=== PATIENT | female | born 1965 | race Caucasian/White ===

== ENCOUNTER 2018-01-09 11:46 | Inpatient (IN) | payer OTHER ==
[2018-01-09 13:33] VITALS: BMI 25.8
--- NOTE | 2018-01-09 14:48 | HP ---
CIWA Score - CIWA Score Nausea/Vomitin-Mild Nausea/No Vomiting Muscle Tremors: 4-Moderate,w/Arms Extend Anxiety: 3 Agitation: 3 Paroxysmal Sweats: 3 Orientation: 0-Oriented Tacttile Disturbances: 0-None Auditory Disturbances: 0-None Visual Disturbances: 0-None Headache: 0-None Present CIWA-Ar Total Score: 14 Admission ROS BHS - HPI Chief Complaint: I need to get help. Allergies/Adverse Reactions: Allergies Allergy/AdvReac Type Severity Reaction Status Date / Time Fish Containing Products Allergy Hives Verified 01/09/18 14:29 Penicillins Allergy Hives Verified 01/09/18 14:29 History of Present Illness: Pt is a 52yr old female clean and sober for a year and recently relapsed. Pt is seeking detox for treatment. Pt is also on a mmtp program last medicated today; pending verification. pt states her dependence to xanax is more addictive than the alcohol. Pt prefer valium detox. Exam Limitations: No Limitations - Ebola screening Have you traveled outside of the country in the last 21 days: No Have you had contact with anyone from an Ebola affected area: No Have you been sick,other than usual withdrawal symptoms: No Do you have a fever: No - Review of Systems Constitutional: Chills, Diaphoresis, Loss of Appetite, Night Sweats EENT: reports: Nose Congestion Respiratory: reports: No Symptoms reported Cardiac: reports: No Symptoms Reported, Syncope (3weeks ago d/t substance dependence) GI: reports: Poor Appetite, Poor Fluid Intake : reports: No Symptoms Reported Musculoskeletal: reports: Back Pain, Other (scoliosis and siactica) Integumentary: reports: Flushing, Sweating Neuro: reports: Tingling, Tremors Endocrine: reports: Excessive Sweating, Flushing, Intolerance to Cold, Intolerance to Heat Hematology: reports: No Symptoms Reported Psychiatric: reports: Judgement Intact, Mood/Affect Appropiate, Orientated x3, Agitated, Anxious Other Systems: Reviewed and Negative Patient History - Patient Medical History Hx Anemia: No Hx Asthma: No Hx Chronic Obstructive Pulmonary Disease (COPD): No Hx Cancer: No Hx Cardiac Disorders: No Hx Congestive Heart Failure: No Hx Hypertension: No Hx Hypercholesterolemia: No Hx Pacemaker: No HX Cerebrovascular Accident: No Hx Seizures: No Hx Dementia: No Hx Diabetes: No Hx Gastrointestinal Disorders: No Hx Liver Disease: No Hx Genitourinary Disorders: No Hx Sexually Transmitted Disorders: No Hx Renal Disease (ESRD): No Hx Thyroid Disease: No Hx Human Immunodeficiency Virus (HIV): No (negative) Hx Hepatitis C: No (negative) Hx Depression: Yes Hx Suicide Attempt: Yes Hx Bipolar Disorder: No Hx Schizophrenia: No - Patient Surgical History Past Surgical History: No Hx Neurologic Surgery: No Hx Cataract Extraction: No Hx Cardiac Surgery: No Hx Lung Surgery: No Hx Breast Surgery: No Hx Breast Biopsy: No Hx Abdominal Surgery: No Hx Appendectomy: No Hx Cholecystectomy: No Hx Genitourinary Surgery: No Hx Section: No Hx Orthopedic Surgery: No Anesthesia Reaction: No - PPD History Previous Implant?: Yes Documented Results: Negative w/o proof Implanted On Prior R Admission?: Yes PPD to be Administered?: Yes - Reproductive History Patient is a Female of Child Bearing Age (11 -55 yrs old): Yes Patient : No - Smoking Cessation Smoking history: Current every day smoker Have you smoked in the past 12 months: Yes Aproximately how many cigarettes per day: 10 Hx Chewing Tobacco Use: No Initiated information on smoking cessation: No 'Breaking Loose' booklet given: 01/09/18 - Substance & Tx. History Hx Alcohol Use: Yes Hx Substance Use: Yes Substance Use Type: Alcohol, Tranquilizers Hx Substance Use Treatment: Yes (last detox [facility] 2 months ago) - Substances Abused Alcohol Route: Oral Frequency: Daily Amount used: BEERS- 10CANS Age of first use: 16 Date of Last Use: 01/07/18 Alprazolam (Xanax) Route: Oral Frequency: Daily Amount used: 4MG Age of first use: 45 Date of Last Use: 01/09/18 ALBERT Route: Smoking Frequency: Daily Amount used: 3BAGS Age of first use: 13 Date of Last Use: 01/08/18 Family Disease History - Family Disease History Family History: Denies Admission Physical Exam BHS - Vital Signs Vital Signs: Vital Signs - 24 hr 01/09/18 13:31 Temperature 96.4 F L Pulse Rate 60 Respiratory 18 Rate Blood Pressure 132/75 - Physical General Appearance: Yes: Appropriately Dressed, Tremorous, Irritable, Sweating, Anxious HEENTM: Yes: Normal Voice, Nasal Congestion, Rhinorrhea Respiratory: Yes: Lungs Clear, Normal Breath Sounds, No Respiratory Distress Neck: Yes: No masses,lesions,Nodules Breast: Yes: Within Normal Limits Cardiology: Yes: Regular Rhythm, Regular Rate, S1, S2 Abdominal: Yes: Normal Bowel Sounds, Non Tender Genitourinary: Yes: Within Normal Limits Back: Yes: Normal Inspection Musculoskeletal: Yes: Back pain, Muscle Pain Extremities: Yes: Non-Tender, Tremors Neurological: Yes: Fully Oriented, Alert, Normal Response Integumentary: Yes: Normal Color Lymphatic: Yes: Within Normal Limits - Diagnostic (1) Cocaine dependence Current Visit: Yes Status: Chronic Qualifiers: Substance use status: uncomplicated Qualified Code(s): F14.20 - Cocaine dependence, uncomplicated (2) Methadone maintenance therapy patient Current Visit: Yes Status: Chronic Comment: last medicated today; pending verification (3) Alcohol dependence with uncomplicated withdrawal Current Visit: Yes Status: Chronic (4) Xanax use disorder, severe, dependence Current Visit: Yes Status: Chronic Cleared for Admission [facility] - Detox or Rehab [facility] Level of Care: Medically Managed Detox Regimen/Protocol: Valium [facility] Breath Alcohol Content Breath Alcohol Content: 0 Urine Pregancy Test - Result Urine Test Results: Negative- NO Line Present Urine Drug Screen - Results Drug Screen Negative: No Urine Drug Screen Results: ALBERT-Cocaine, BZO-Benzodiazepines, MTD-Methadone
[2018-01-09] MEDS ORDERED: NICOTINE POLACRILEX 4 MG GUM BC PRN (14:54)
[2018-01-09] MEDS ORDERED: MENTHOL/PHENOL 1 EACH UD MM PRN (14:54)
[2018-01-09] MEDS ORDERED: MAGNESIUM CITRATE 300 ML BOTTLE PO PRN (14:54)
[2018-01-09] MEDS ORDERED: MAG HYDROX/AL HYDROX/SIMETH 30 ML UNIT-DOSE CUP PO PRN (14:54)
[2018-01-09] MEDS ORDERED: guaiFENesin/D-METHORPHAN HB 10 ML UNIT-DOSE CUPS PO PRN (14:54)
[2018-01-09] MEDS ORDERED: LOPERAMIDE HCL 2 MG CAPSULE PO PRN (14:54)
[2018-01-09] MEDS ORDERED: P-EPHED 60MG/TRIPROLIDI 2.5MG TABLET PO PRN (14:54)
[2018-01-09] MEDS ORDERED: MAGNESIUM HYDROX 2400MG/30ML ORAL SUSPENSION 30 ML CUP PO PRN (14:54)
[2018-01-09] MEDS ORDERED: IBUPROFEN 400 MG TABLET (FP) PO PRN (14:54)
[2018-01-09] MEDS ORDERED: diazePAM 5 MG TABLET PO ONE (16:45)
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
[2018-01-09] MEDS ORDERED: MELATONIN 5 MG TABLETS PO PRN (22:00)
[2018-01-09] MEDS ORDERED: ZOLPIDEM TARTRATE 5 MG TABLET PO PRN (22:00)
[2018-01-09] MEDS: THIAMINE HCL 100 MG TABLET (FP) PO SCH (22:16)
[2018-01-09] MEDS: diazePAM 5 MG TABLET PO SCH (22:16)
[2018-01-09] MEDS: ZOLPIDEM TARTRATE 10 MG TABLET (PARK CARE ONLY) PO PRN (22:17)
[2018-01-10] MEDS: diazePAM 5 MG TABLET PO SCH ×3 (06:15→23:11)
--- NOTE | 2018-01-10 10:09 | PN ---
S CIWA - CIWA Score Nausea/Vomitin-Mild Nausea/No Vomiting Muscle Tremors: 3 Anxiety: 2 Agitation: 2 Paroxysmal Sweats: 1-Minimal Palms Moist Orientation: 1-Uncertain about Date Tacttile Disturbances: 1-Very Mild Itch/Numbness Auditory Disturbances: 0-None Visual Disturbances: 0-None Headache: 1-Very Mild CIWA-Ar Total Score: 12 BHS Progress Note (SOAP) Subjective: gi distress, nausea zofrain 4 mg x 1 bp elevation amlodipne 5 mg Objective: 01/10/18 10:34 Vital Signs Temperature 97.6 F 01/10/18 10:00 Pulse Rate 54 L 01/10/18 10:00 Respiratory Rate 20 01/10/18 10:00 Blood Pressure 169/74 01/10/18 10:00 O2 Sat by Pulse Oximetry (%) Laboratory Last Values WBC 6.1 K/mm3 (4.0-10.0) 01/10/18 06:00 RBC 5.07 M/mm3 (3.60-5.2) 01/10/18 06:00 Hgb 13.3 GM/dL (10.7-15.3) 01/10/18 06:00 Hct 42.1 % (32.4-45.2) 01/10/18 06:00 MCV 83.1 fl (80-96) 01/10/18 06:00 MCH 26.3 pg (25.7-33.7) 01/10/18 06:00 MCHC 31.7 g/dl (32.0-36.0) L 01/10/18 06:00 RDW 15.8 % (11.6-15.6) H 01/10/18 06:00 Plt Count 191 K/MM3 (134-434) 01/10/18 06:00 MPV 10.9 fl (7.5-11.1) 01/10/18 06:00 lab noted Assessment: 01/10/18 10:35 withdrawal sx hypertension nausea 01/10/18 10:35 methadone maintenance 180 mg Plan: continue detox zofrain 4 mg sl amlodopine 5 mg po daily
[2018-01-10] MEDS ORDERED: ONDANSETRON *ODT* 4 MG TABLET SL ONE (10:15)
[2018-01-10 10:29] LABS: HEMATOCRIT 42.1 % (32.4-45.2); HEMOGLOBIN 13.3 GM/dL (10.7-15.3); MCH 26.3 pg (25.7-33.7); MCHC 31.7 g/dl (32.0-36.0); MEAN CELL VOLUME 83.1 fl (80-96); MEAN PLT VOLUME 10.9 fl (7.5-11.1); PLATELET COUNT 191 K/MM3 (134-434); RBC 5.07 M/mm3 (3.60-5.2); RDW 15.8 % (11.6-15.6); WHITE BLOOD COUNT 6.1 K/mm3 (4.0-10.0)
[2018-01-10] MEDS: SERTRALINE HCL 50 MG TABLET (FP) PO SCH (10:41)
[2018-01-10] MEDS: diazePAM 5 MG TABLET PO PRN ×2 (10:41→18:56)
[2018-01-10] MEDS: PRENATAL VITAMINS W/ FOLIC ACID TABLET (FP) PO SCH (10:41)
[2018-01-10] MEDS: amLODIPine BESYLATE 5 MG TABLET (FP) PO SCH (10:42)
[2018-01-10] MEDS: NICOTINE 21 MG/24 HOURS TOPICAL PATCH TD SCH ×2 (10:44→11:41)
--- NOTE | 2018-01-10 10:48 | EKG ---
Test Reason : Blood Pressure : / mmHG Vent. Rate : 060 BPM Atrial Rate : 060 BPM P-R Int : 170 ms QRS Dur : 090 ms QT Int : 474 ms P-R-T Axes : 071 070 058 degrees QTc Int : 474 ms NORMAL SINUS RHYTHM POSSIBLE LEFT ATRIAL ENLARGEMENT BORDERLINE ECG NO PREVIOUS ECGS AVAILABLE Confirmed by CORNELIO CASTILLO, JUAN ([id number]) on 01/10/2018 10:47:43 AM Referred By: Confirmed By:JUAN GRIMES MD
[2018-01-10 11:03] LABS: ALBUMIN 3.5 g/dl (3.4-5.0); ALK PHOS 66 U/L (45-117); ANION GAP 7 MMOL/L (8-16); BILIRUBIN,TOTAL 0.2 mg/dL (0.2-1); BLOOD UREA NITROGEN 15 mg/dL (7-18); CALCIUM 9.1 mg/dL (8.5-10.1); CHLORIDE 108 mmol/L (98-107); CO2 30 mmol/L (21-32); CREATININE 0.7 mg/dL (0.55-1.3); GLUCOSE,RANDOM 78 mg/dL (74-106); POTASSIUM 4.4 mmol/L (3.5-5.1); SGOT/AST 17 U/L (15-37); SGPT/ALT 17 U/L (13-61); SODIUM 145 mmol/L (136-145); TOT PROT 6.6 g/dl (6.4-8.2)
[2018-01-10] MEDS ORDERED: METHADONE HCL 10 MG TABLET PO ONE (11:14)
[2018-01-10] MEDS ORDERED: METHADONE 160 MG, METHADONE 20 MG PO ONE (11:30)
[2018-01-10] MEDS ORDERED: METHADONE HCL 40 MG DISPERSABLE TABLET ONE (11:34)
[2018-01-10] MEDS ORDERED: METHADONE HCL 10 MG TABLET ONE (11:34)
[2018-01-10] MEDS: ACETAMINOPHEN 325 MG TABLET (FP) PO PRN (13:32)
[2018-01-10] MEDS: hydrOXYzine PAMOATE 50 MG CAPSULE (FP) PO PRN (18:56)
[2018-01-10 21:54] LABS: URINE APPEARANCE CLEAR; URINE BILIRUBIN NEGATIVE (<2.0 mg/dL); URINE COLOR STRAW; URINE GLUCOSE (UA) NEGATIVE (NEGATIVE); URINE KETONE NEGATIVE (NEGATIVE); URINE LEUK ESTERASE NEGATIVE (NEGATIVE); URINE NITRITE NEGATIVE (NEGATIVE); URINE PROTEIN NEGATIVE (NEGATIVE); URINE UROBILINOGEN NEGATIVE mg/dL (0.2-1.0)
[2018-01-10] MEDS: THIAMINE HCL 100 MG TABLET (FP) PO SCH (23:11)
[2018-01-10] MEDS: ZOLPIDEM TARTRATE 10 MG TABLET (PARK CARE ONLY) PO PRN (23:11)
[2018-01-11] MEDS: diazePAM 5 MG TABLET PO PRN ×2 (02:30→13:51)
[2018-01-11] MEDS ORDERED: METHADONE HCL 40 MG DISPERSABLE TABLET ONE (05:38)
[2018-01-11] MEDS ORDERED: METHADONE HCL 10 MG TABLET ONE (05:39)
[2018-01-11] MEDS ORDERED: METHADONE HCL 40 MG DISPERSABLE TABLET PO SCH (06:00)
[2018-01-11] MEDS: METHADONE 160 MG, METHADONE 20 MG PO SCH (06:02)
[2018-01-11] MEDS: ACETAMINOPHEN 325 MG TABLET (FP) PO PRN ×2 (06:21→20:35)
[2018-01-11] MEDS: amLODIPine BESYLATE 5 MG TABLET (FP) PO SCH (10:17)
[2018-01-11] MEDS: SERTRALINE HCL 50 MG TABLET (FP) PO SCH (10:17)
[2018-01-11] MEDS: NICOTINE 21 MG/24 HOURS TOPICAL PATCH TD SCH (10:17)
[2018-01-11] MEDS: diazePAM 5 MG TABLET PO SCH ×2 (10:17→22:15)
[2018-01-11] MEDS: PRENATAL VITAMINS W/ FOLIC ACID TABLET (FP) PO SCH (10:17)
--- NOTE | 2018-01-11 11:42 | PN ---
[facility] CIWA - CIWA Score Nausea/Vomitin-No Nausea/No Vomiting Muscle Tremors: 3 Anxiety: 2 Agitation: 2 Paroxysmal Sweats: 1-Minimal Palms Moist Orientation: 0-Oriented Tacttile Disturbances: 1-Very Mild Itch/Numbness Auditory Disturbances: 0-None Visual Disturbances: 0-None Headache: 1-Very Mild CIWA-Ar Total Score: 10 S Progress Note (SOAP) Subjective: tremor sweat restlessness anxiety trouble sleep at night Objective: 01/11/18 11:43 Vital Signs Temperature 97.3 F L 01/11/18 09:12 Pulse Rate 68 01/11/18 09:12 Respiratory Rate 17 01/11/18 09:12 Blood Pressure 113/74 01/11/18 09:12 O2 Sat by Pulse Oximetry (%) Laboratory Last Values WBC 6.1 K/mm3 (4.0-10.0) 01/10/18 06:00 RBC 5.07 M/mm3 (3.60-5.2) 01/10/18 06:00 Hgb 13.3 GM/dL (10.7-15.3) 01/10/18 06:00 Hct 42.1 % (32.4-45.2) 01/10/18 06:00 MCV 83.1 fl (80-96) 01/10/18 06:00 MCH 26.3 pg (25.7-33.7) 01/10/18 06:00 MCHC 31.7 g/dl (32.0-36.0) L 01/10/18 06:00 RDW 15.8 % (11.6-15.6) H 01/10/18 06:00 Plt Count 191 K/MM3 (134-434) 01/10/18 06:00 MPV 10.9 fl (7.5-11.1) 01/10/18 06:00 Sodium 145 mmol/L (136-145) 01/10/18 06:00 Potassium 4.4 mmol/L (3.5-5.1) 01/10/18 06:00 Chloride 108 mmol/L (98-107) H 01/10/18 06:00 Carbon Dioxide 30 mmol/L (21-32) 01/10/18 06:00 Anion Gap 7 MMOL/L (8-16) L 01/10/18 06:00 BUN 15 mg/dL (7-18) 01/10/18 06:00 Creatinine 0.7 mg/dL (0.55-1.3) 01/10/18 06:00 Creat Clearance w eGFR > 60 (>60) 01/10/18 06:00 Random Glucose 78 mg/dL (74-106) 01/10/18 06:00 Calcium 9.1 mg/dL (8.5-10.1) 01/10/18 06:00 Total Bilirubin 0.2 mg/dL (0.2-1) 01/10/18 06:00 AST 17 U/L (15-37) 01/10/18 06:00 ALT 17 U/L (13-61) 01/10/18 06:00 Alkaline Phosphatase 66 U/L (45-117) 01/10/18 06:00 Total Protein 6.6 g/dl (6.4-8.2) 01/10/18 06:00 Albumin 3.5 g/dl (3.4-5.0) 01/10/18 06:00 Urine Color Straw 01/10/18 16:04 Urine Appearance Clear 01/10/18 16:04 Urine pH 7.0 (5.0-8.0) 01/10/18 16:04 Ur Specific [place] 1.004 (1.010-1.035) L 01/10/18 16:04 Urine Protein Negative (NEGATIVE) 01/10/18 16:04 Urine Glucose (UA) Negative (NEGATIVE) 01/10/18 16:04 Urine Ketones Negative (NEGATIVE) 01/10/18 16:04 Urine Blood Negative (NEGATIVE) 01/10/18 16:04 Urine Nitrite Negative (NEGATIVE) 01/10/18 16:04 Urine Bilirubin Negative (<2.0 mg/dL) 01/10/18 16:04 Urine Urobilinogen Negative mg/dL (0.2-1.0) 01/10/18 16:04 Ur Leukocyte Esterase Negative (NEGATIVE) 01/10/18 16:04 RPR Titer Nonreactive (NONREACTIVE) 01/10/18 06:00 HIV 1&2 Antibody Screen Negative 01/10/18 06:00 HIV P24 Antigen Negative 01/10/18 06:00 lab noted Assessment: 01/11/18 11:43 withdrawal sx Plan: continue detox
[2018-01-11] MEDS: hydrOXYzine PAMOATE 50 MG CAPSULE (FP) PO PRN (20:35)
[2018-01-11] MEDS: ZOLPIDEM TARTRATE 10 MG TABLET (PARK CARE ONLY) PO PRN (22:15)
[2018-01-11] MEDS: THIAMINE HCL 100 MG TABLET (FP) PO SCH (22:15)
[2018-01-12] MEDS: ACETAMINOPHEN 325 MG TABLET (FP) PO PRN ×3 (01:55→21:10)
[2018-01-12] MEDS: diazePAM 5 MG TABLET PO PRN (01:55)
[2018-01-12] MEDS: hydrOXYzine PAMOATE 50 MG CAPSULE (FP) PO PRN ×3 (02:36→21:10)
[2018-01-12] MEDS ORDERED: METHADONE HCL 40 MG DISPERSABLE TABLET ONE (06:19)
[2018-01-12] MEDS: METHADONE 160 MG, METHADONE 20 MG PO SCH (06:20)
[2018-01-12] MEDS ORDERED: METHADONE HCL 10 MG TABLET ONE (06:20)
[2018-01-12] MEDS ORDERED: LIDOCAINE 5% TOPICAL PATCH TP SCH (10:30)
[2018-01-12] MEDS: diazePAM 5 MG TABLET PO SCH ×2 (10:31→22:35)
[2018-01-12] MEDS: NICOTINE 21 MG/24 HOURS TOPICAL PATCH TD SCH (10:31)
[2018-01-12] MEDS: PRENATAL VITAMINS W/ FOLIC ACID TABLET (FP) PO SCH (10:31)
[2018-01-12] MEDS: SERTRALINE HCL 50 MG TABLET (FP) PO SCH (10:32)
[2018-01-12] MEDS: amLODIPine BESYLATE 5 MG TABLET (FP) PO SCH (11:01)
--- NOTE | 2018-01-12 12:25 | PN ---
S Progress Note Note: PATIENT CONTINUES WITH DETOX REGIMEN. PATIENT C/O LOW BACK PAIN. Vital Signs Period Temp Pulse Resp BP Sys/Albright Pulse Ox Last 24 Hr 97.3 F-98.4 F 57-68 16-20 96-141/65-74 Laboratory Tests 01/10/18 01/10/18 01/10/18 06:00 06:00 06:00 WBC 6.1 RBC 5.07 Hgb 13.3 Hct 42.1 MCV 83.1 MCH 26.3 MCHC 31.7 L RDW 15.8 H Plt Count 191 MPV 10.9 Sodium 145 Potassium 4.4 Chloride 108 H Carbon Dioxide 30 Anion Gap 7 L BUN 15 Creatinine 0.7 Creat Clearance w eGFR > 60 Random Glucose 78 Calcium 9.1 Total Bilirubin 0.2 AST 17 ALT 17 Alkaline Phosphatase 66 Total Protein 6.6 Albumin 3.5 Urine Color Urine Appearance Urine pH Ur Specific [place] Urine Protein Urine Glucose (UA) Urine Ketones Urine Blood Urine Nitrite Urine Bilirubin Urine Urobilinogen Ur Leukocyte Esterase RPR Titer HIV 1&2 Antibody Screen Negative HIV P24 Antigen Negative 01/10/18 01/10/18 06:00 16:04 WBC RBC Hgb Hct MCV MCH MCHC RDW Plt Count MPV Sodium Potassium Chloride Carbon Dioxide Anion Gap BUN Creatinine Creat Clearance w eGFR Random Glucose Calcium Total Bilirubin AST ALT Alkaline Phosphatase Total Protein Albumin Urine Color Straw Urine Appearance Clear Urine pH 7.0 Ur Specific [place] 1.004 L Urine Protein Negative Urine Glucose (UA) Negative Urine Ketones Negative Urine Blood Negative Urine Nitrite Negative Urine Bilirubin Negative Urine Urobilinogen Negative Ur Leukocyte Esterase Negative RPR Titer Nonreactive HIV 1&2 Antibody Screen HIV P24 Antigen SKIN WARM AND DRY CAR S1S2 RESP CTA BL EXT FULL ROM, NO EDEMA ALERT AND ORIENTED X 3 A/P WITHDRAWAL SYNDROME LBP CONTINUE DETOX ADD LIDOCAINE PATCH TO REGIMEN ENCOURAGE ORAL FLUIDS CONTINUE TO MONITOR CLINICALLY
[2018-01-12] MEDS: ZOLPIDEM TARTRATE 10 MG TABLET (PARK CARE ONLY) PO PRN (21:55)
[2018-01-12] MEDS ORDERED: LIDOCAINE PATCH REMOVAL MC SCH (22:00)
[2018-01-12] MEDS: THIAMINE HCL 100 MG TABLET (FP) PO SCH (22:35)
[2018-01-13] MEDS: ACETAMINOPHEN 325 MG TABLET (FP) PO PRN (02:02)
[2018-01-13] MEDS ORDERED: METHADONE HCL 10 MG TABLET ONE (04:13)
[2018-01-13] MEDS ORDERED: METHADONE HCL 40 MG DISPERSABLE TABLET ONE (04:13)
[2018-01-13] MEDS: METHADONE 160 MG, METHADONE 20 MG PO SCH (05:21)
[2018-01-13 06:19] VITALS: BP 130/77; PULSE 65; TEMP 98.1
[2018-01-13] MEDS ORDERED: diazePAM 5 MG TABLET PO SCH (10:00)
--- NOTE | 2018-01-13 13:15 | DS ---
[facility] Detox Discharge Summary Admission Date: 01/09/18 Discharge Date: 01/13/18 - History Additional Comments: Pt for discharge Pt had left unit prior to this provider's arrival Pertinent Past History: MMTP - Physical Exam Results Vital Signs: Vital Signs Temperature 98.1 F 01/13/18 06:00 Pulse Rate 65 01/13/18 06:00 Respiratory Rate 16 01/13/18 06:00 Blood Pressure 130/77 01/13/18 06:00 O2 Sat by Pulse Oximetry (%) Pertinent Admission Physical Exam Findings: withdrawal sx - Treatment Hospital Course: Detox Protocol Followed, Detoxed Safely, Responded well, Discharged Condition Good - Medication Discharge Medications: Ambulatory Orders Sertraline HCl [Zoloft] 50 mg PO DAILY 01/09/18 Zolpidem Tartrate [Ambien] 10 mg PO HS 01/09/18 Methadone [Dolophine -] 180 mg PO DAILY@0600 01/10/18 Amlodipine Besylate [Norvasc -] 5 mg PO DAILY #30 tablet 01/12/18 - Diagnosis (1) Alcohol dependence with uncomplicated withdrawal Status: Acute (2) Sedative hypnotic or anxiolytic dependence Status: Acute (3) Substance induced mood disorder Status: Chronic (4) Cocaine dependence Status: Chronic Qualifiers: Substance use status: uncomplicated Qualified Code(s): F14.20 - Cocaine dependence, uncomplicated (5) Methadone maintenance therapy patient Status: Chronic - AMA Did Patient Leave Against Medical Advice: No
== END 2018-01-13 07:56 | disposition home or self-care (01) | DRG 773 ==
LOC: YASAS 11:46 → Y6N 15:32
PROC: HZ2ZZZZ Detoxification Services for Substance Abuse Treatment (ICD-10-PCS; principal; 2018-01-09)
DX: F11.23 Opioid dependence with withdrawal (principal); F13.230 Sedative, hypnotic or anxiolytic dependence with withdrawal, uncomplicated; F14.20 Cocaine dependence, uncomplicated; F11.20 Opioid dependence, uncomplicated; F19.24 Other psychoactive substance dependence with psychoactive substance-induced mood disorder; F32.9 Major depressive disorder, single episode, unspecified; F43.10 Post-traumatic stress disorder, unspecified; Z91.5 Personal history of self-harm; Z88.0 Allergy status to penicillin; Z91.013 Allergy to seafood
CPT/HCPCS: 36415; 80053; 81003; 85027; 86593; 87389; 93005; 93010

== ENCOUNTER 2018-01-15 14:55 | Inpatient (IN) | payer OTHER ==
[2018-01-15 19:01] VITALS: BMI 26.0
--- NOTE | 2018-01-15 21:08 | HP ---
Admission ROS [facility] Chief Complaint: Seeking admission to Rehab. Allergies/Adverse Reactions: Allergies Allergy/AdvReac Type Severity Reaction Status Date / Time Fish Containing Products Allergy Hives Verified 01/15/18 19:29 Penicillins Allergy Hives Verified 01/15/18 19:29 History of Present Illness: 52 years old female is seeking admission to Rehab. Patient has history of sciatica, hypertension, anxiety and depression. She reports suicide attempt at age 18, 20 and 36 years old and denies suicidal ideation at this time. Patient is on Methadone 180mg with [facility] MMTP. LDM was today, 2017. Dose to be verified by the Nurse. Exam Limitations: No Limitations - Ebola screening Have you traveled outside of the country in the last 21 days: No Have you had contact with anyone from an Ebola affected area: No Have you been sick,other than usual withdrawal symptoms: No - Review of Systems Constitutional: No Symptoms Reported EENT: reports: No Symptoms Reported Respiratory: reports: No Symptoms reported Cardiac: reports: No Symptoms Reported GI: reports: No Symptoms Reported : reports: No Symptoms Reported Musculoskeletal: reports: No Symptoms Reported Integumentary: reports: No Symptoms Reported Neuro: reports: No Symptoms reported Endocrine: reports: No Symptoms Reported Hematology: reports: No Symptoms Reported Psychiatric: reports: No Sypmtoms Reported, Mood/Affect Appropiate, Orientated x3 Other Systems: Reviewed and Negative Patient History - Patient Medical History Hx Anemia: No Hx Asthma: No Hx Chronic Obstructive Pulmonary Disease (COPD): No Hx Cancer: No Hx Cardiac Disorders: No Hx Congestive Heart Failure: No Hx Hypertension: Yes (Amlodipine) Hx Hypercholesterolemia: No Hx Pacemaker: No HX Cerebrovascular Accident: No Hx Seizures: No Hx Dementia: No Hx Diabetes: No Hx Gastrointestinal Disorders: No Hx Liver Disease: No Hx Genitourinary Disorders: No Hx Sexually Transmitted Disorders: No Hx Renal Disease (ESRD): No Hx Thyroid Disease: No Hx Human Immunodeficiency Virus (HIV): No (Negative 2017) Hx Hepatitis C: No Hx Depression: Yes Hx Suicide Attempt: Yes (At age 16, 18 and 36. Denies suicidal ideation at this time) Hx Bipolar Disorder: No Hx Schizophrenia: No Other Medical History: Anxiety - Not on medication - Patient Surgical History Past Surgical History: No Hx Neurologic Surgery: No Hx Cataract Extraction: No Hx Cardiac Surgery: No Hx Lung Surgery: No Hx Breast Surgery: No Hx Breast Biopsy: No Hx Abdominal Surgery: No Hx Appendectomy: No Hx Cholecystectomy: No Hx Genitourinary Surgery: No Hx Section: No Hx Orthopedic Surgery: No Anesthesia Reaction: No - PPD History Documented Results: Negative w/proof Implanted On Prior [facility] Admission?: Yes Date: 01/11/18 PPD to be Administered?: No - Reproductive History Patient is a Female of Child Bearing Age (11 -55 yrs old): Yes LMP comment: Menopausal Patient : No - Smoking Cessation Smoking history: Current every day smoker Have you smoked in the past 12 months: Yes Aproximately how many cigarettes per day: 10 Hx Chewing Tobacco Use: No Initiated information on smoking cessation: Yes 'Breaking Loose' booklet given: 01/15/18 - Substance & Tx. History Hx Alcohol Use: No Hx Substance Use: Yes Substance Use Type: Cocaine, Marijuana - Substances Abused Cocaine Route: Smoking Frequency: Daily Amount used: $200 Age of first use: 15 Date of Last Use: 01/07/18 Alprazolam (Xanax) Route: Oral Frequency: Daily Amount used: 3 tablets of 0.2mg Age of first use: 20 Date of Last Use: 01/07/18 Family Disease History - Family Disease History Family Disease History: CA: Mother (liver disease) Admission Physical Exam BHS - Vital Signs Vital Signs: Vital Signs - 24 hr 01/15/18 18:59 Temperature 97.1 F L Pulse Rate 89 Respiratory 18 Rate Blood Pressure 127/73 - Physical General Appearance: Yes: Within Normal Limits HEENTM: Yes: EOMI, Normal ENT Inspection, Normocephalic, Normal Voice, DOLLY Respiratory: Yes: Lungs Clear, Normal Breath Sounds, No Respiratory Distress Neck: Yes: Supple Breast: Yes: Breast Exam Deferred Cardiology: Yes: Regular Rhythm, Regular Rate Abdominal: Yes: Normal Bowel Sounds Back: Yes: Normal Inspection Musculoskeletal: Yes: Within Normal Limits Extremities: Yes: Normal Inspection Neurological: Yes: flight agent II-XII NML intact, Alert, Normal Mood/Affect Integumentary: Yes: Warm Lymphatic: Yes: Within Normal Limits - Diagnostic (1) Sedative hypnotic or anxiolytic dependence Current Visit: Yes Status: Chronic (2) Cocaine dependence Current Visit: Yes Status: Chronic Qualifiers: Substance use status: uncomplicated Qualified Code(s): F14.20 - Cocaine dependence, uncomplicated (3) Methadone maintenance therapy patient Current Visit: Yes Status: Chronic Comment: last medicated today; pending verification Cleared for Admission [facility] - Detox or Rehab [facility] Level of Care: Observation Bed Claeared for Rehab Admission: Yes [facility] Breath Alcohol Content Breath Alcohol Content: 0 Urine Pregancy Test - Result Urine Test Results: Negative- NO Line Present Urine Drug Screen - Results Drug Screen Negative: No Urine Drug Screen Results: ALBERT-Cocaine, BZO-Benzodiazepines, MTD-Methadone Inpatient Rehab Admission - Initial Determination Are CD services needed?: Yes Free of communicable disease: Yes Not in need of hospitalization: Yes - Rehab Admission Criteria Previous failed treatment: Yes Poor recovery environment: Yes Comorbidities: Yes Lacks judgement: No Patient is meeting Inpatient Rehab admission criteria:: Yes
[2018-01-15] MEDS ORDERED: MAG HYDROX/AL HYDROX/SIMETH 30 ML UNIT-DOSE CUP PO PRN (21:24)
[2018-01-15] MEDS ORDERED: P-EPHED 60MG/TRIPROLIDI 2.5MG TABLET PO PRN (21:24)
[2018-01-15] MEDS ORDERED: NICOTINE POLACRILEX 2 MG GUM BC PRN (21:24)
[2018-01-15] MEDS ORDERED: MENTHOL/PHENOL 1 EACH UD MM PRN (21:24)
[2018-01-15] MEDS ORDERED: LOPERAMIDE HCL 2 MG CAPSULE PO PRN (21:24)
[2018-01-15] MEDS ORDERED: MAGNESIUM CITRATE 300 ML BOTTLE PO PRN (21:24)
[2018-01-15] MEDS ORDERED: MAGNESIUM HYDROX 2400MG/30ML ORAL SUSPENSION 30 ML CUP PO PRN (21:24)
[2018-01-15] MEDS ORDERED: guaiFENesin/D-METHORPHAN HB 10 ML UNIT-DOSE CUPS PO PRN (21:24)
[2018-01-15 23:57] LABS: URINE APPEARANCE TURBID; URINE BILIRUBIN NEGATIVE (<2.0 mg/dL); URINE COLOR YELLOW; URINE GLUCOSE (UA) NEGATIVE (NEGATIVE); URINE KETONE NEGATIVE (NEGATIVE); URINE LEUK ESTERASE 1+ (NEGATIVE); URINE NITRITE NEGATIVE (NEGATIVE); URINE PROTEIN NEGATIVE (NEGATIVE); URINE UROBILINOGEN NEGATIVE mg/dL (0.2-1.0)
[2018-01-16 00:22] LABS: EPI CELLS RARE /HPF (FEW); URINE MUCUS FEW
[2018-01-16] MEDS: MELATONIN 5 MG TABLETS PO PRN ×2 (00:30→21:49)
[2018-01-16] MEDS: THIAMINE HCL 100 MG TABLET (FP) PO SCH ×2 (01:52→21:49)
[2018-01-16] MEDS ORDERED: METHADONE HCL 10 MG TABLET PO SCH (07:30)
[2018-01-16] MEDS ORDERED: METHADONE HCL 10 MG TABLET ONE (07:39)
[2018-01-16] MEDS ORDERED: METHADONE HCL 40 MG DISPERSABLE TABLET ONE (07:40)
[2018-01-16] MEDS: METHADONE 160 MG, METHADONE 20 MG PO SCH (07:46)
[2018-01-16] MEDS: NICOTINE 14 MG/24 HOURS TOPICAL PATCH TD SCH (09:14)
[2018-01-16] MEDS: PRENATAL VITAMINS W/ FOLIC ACID TABLET (FP) PO SCH (09:16)
[2018-01-16] MEDS: amLODIPine BESYLATE 5 MG TABLET (FP) PO SCH (09:16)
--- NOTE | 2018-01-16 12:59 | EKG ---
Test Reason : Blood Pressure : / mmHG Vent. Rate : 078 BPM Atrial Rate : 078 BPM P-R Int : 184 ms QRS Dur : 092 ms QT Int : 450 ms P-R-T Axes : 073 070 057 degrees QTc Int : 513 ms NORMAL SINUS RHYTHM PROLONGED QT ABNORMAL ECG Confirmed by MD ROBERT, ZUNILDA ([id number]) on 01/16/2018 12:59:14 PM Referred By: Confirmed By:ZUNILDA JONES MD
--- NOTE | 2018-01-16 13:27 | PN ---
[facility] Progress Note Note: Called by nursing staff to order medication for newly admitted patient from [facility]. Medication reconciliation done Zoloft 5o mg po daily ordered for patient. Patient is also requesting Vistaril for anxiety. So Vistaril 50 mg po Q 4hrs prn ordered
[2018-01-16] MEDS: hydrOXYzine PAMOATE 50 MG CAPSULE (FP) PO PRN ×2 (17:38→21:50)
[2018-01-17] MEDS ORDERED: METHADONE HCL 40 MG DISPERSABLE TABLET ONE (03:16)
[2018-01-17] MEDS ORDERED: METHADONE HCL 10 MG TABLET ONE (03:16)
[2018-01-17] MEDS: METHADONE 160 MG, METHADONE 20 MG PO SCH ×2 (06:39→08:08)
[2018-01-17] MEDS: IBUPROFEN 400 MG TABLET (FP) PO PRN ×2 (08:57→17:56)
[2018-01-17] MEDS: hydrOXYzine PAMOATE 50 MG CAPSULE (FP) PO PRN ×2 (08:57→17:57)
[2018-01-17] MEDS: SERTRALINE HCL 50 MG TABLET (FP) PO SCH (10:37)
[2018-01-17] MEDS: PRENATAL VITAMINS W/ FOLIC ACID TABLET (FP) PO SCH (10:37)
[2018-01-17] MEDS: amLODIPine BESYLATE 5 MG TABLET (FP) PO SCH (10:37)
[2018-01-17] MEDS: NICOTINE 14 MG/24 HOURS TOPICAL PATCH TD SCH (10:38)
[2018-01-17] MEDS: THIAMINE HCL 100 MG TABLET (FP) PO SCH (21:38)
[2018-01-17] MEDS: QUEtiapine FUMARATE 100 MG TABLET (FP) PO SCH (21:39)
[2018-01-17] MEDS: MELATONIN 5 MG TABLETS PO PRN (21:39)
[2018-01-18] MEDS ORDERED: METHADONE HCL 40 MG DISPERSABLE TABLET ONE (07:42)
[2018-01-18] MEDS ORDERED: METHADONE HCL 10 MG TABLET ONE (07:42)
[2018-01-18] MEDS: METHADONE 160 MG, METHADONE 20 MG PO SCH (07:48)
[2018-01-18] MEDS: NICOTINE 14 MG/24 HOURS TOPICAL PATCH TD SCH (10:46)
[2018-01-18] MEDS: IBUPROFEN 400 MG TABLET (FP) PO PRN (10:46)
[2018-01-18] MEDS: amLODIPine BESYLATE 5 MG TABLET (FP) PO SCH (10:47)
[2018-01-18] MEDS: SERTRALINE HCL 50 MG TABLET (FP) PO SCH (10:47)
[2018-01-18] MEDS: PRENATAL VITAMINS W/ FOLIC ACID TABLET (FP) PO SCH (10:47)
[2018-01-18 10:52] LABS: URINE APPEARANCE SLCLOUDY; URINE BILIRUBIN NEGATIVE (<2.0 mg/dL); URINE COLOR LTYELLOW; URINE GLUCOSE (UA) NEGATIVE (NEGATIVE); URINE KETONE NEGATIVE (NEGATIVE); URINE LEUK ESTERASE TRACE (NEGATIVE); URINE NITRITE NEGATIVE (NEGATIVE); URINE PROTEIN NEGATIVE (NEGATIVE); URINE UROBILINOGEN NEGATIVE mg/dL (0.2-1.0)
[2018-01-18 11:07] LABS: EPI CELLS FEW /HPF (FEW); URINE HYALINE CAST 1 /lpf; URINE MUCUS RARE
--- NOTE | 2018-01-18 13:34 | PN ---
[facility] Progress Note Note: Vital Signs Temperature 97.6 F 01/18/18 06:00 Pulse Rate 61 01/18/18 09:20 Respiratory Rate 17 01/18/18 09:20 Blood Pressure 130/77 01/18/18 09:20 O2 Sat by Pulse Oximetry (%) Patient c/o of back pain, anxiety. Denies changes in ROM or paresthesia. Patient reports she does not hx of HTN, refuses to take BP meds, although patient reported on admission taking norvasc QD. Aox3 no distress no adventitious breath sounds full ROM, + back pain lumbago anxiety HTN Plan: Patient educated on BP readings while on unit and importance to take medications as directed. Anxiety: f/u with psych back pain": flexeril PRN increase fluids ambulate continue to monitor
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
[2018-01-18] MEDS: CYCLOBENZAPRINE HCL 5 MG TABLET PO SCH ×2 (14:39→21:39)
[2018-01-18] MEDS: hydrOXYzine PAMOATE 50 MG CAPSULE (FP) PO PRN ×2 (14:40→21:39)
[2018-01-18] MEDS: THIAMINE HCL 100 MG TABLET (FP) PO SCH (21:38)
[2018-01-18] MEDS: QUEtiapine FUMARATE 100 MG TABLET (FP) PO SCH (21:39)
[2018-01-18] MEDS: SUVOREXANT 10 MG TABLET PO PRN (21:42)
[2018-01-19] MEDS: CYCLOBENZAPRINE HCL 5 MG TABLET PO SCH ×3 (06:47→21:50)
[2018-01-19] MEDS ORDERED: METHADONE HCL 10 MG TABLET ONE (07:41)
[2018-01-19] MEDS ORDERED: METHADONE HCL 40 MG DISPERSABLE TABLET ONE (07:42)
[2018-01-19] MEDS: METHADONE 160 MG, METHADONE 20 MG PO SCH (07:44)
[2018-01-19] MEDS: IBUPROFEN 400 MG TABLET (FP) PO PRN (08:33)
[2018-01-19] MEDS: amLODIPine BESYLATE 5 MG TABLET (FP) PO SCH (10:19)
[2018-01-19] MEDS: PRENATAL VITAMINS W/ FOLIC ACID TABLET (FP) PO SCH (10:19)
[2018-01-19] MEDS: SERTRALINE HCL 50 MG TABLET (FP) PO SCH (10:20)
[2018-01-19] MEDS: NICOTINE 14 MG/24 HOURS TOPICAL PATCH TD SCH (10:20)
[2018-01-19] MEDS: QUEtiapine FUMARATE 100 MG TABLET (FP) PO SCH (21:50)
[2018-01-19] MEDS: THIAMINE HCL 100 MG TABLET (FP) PO SCH (21:50)
[2018-01-19] MEDS: SUVOREXANT 10 MG TABLET PO PRN (21:51)
[2018-01-20] MEDS ORDERED: METHADONE HCL 10 MG TABLET ONE (06:04)
[2018-01-20] MEDS ORDERED: METHADONE HCL 40 MG DISPERSABLE TABLET ONE (06:06)
[2018-01-20] MEDS: CYCLOBENZAPRINE HCL 5 MG TABLET PO SCH ×3 (06:49→21:40)
[2018-01-20] MEDS: METHADONE 160 MG, METHADONE 20 MG PO SCH (07:59)
[2018-01-20] MEDS: NICOTINE 14 MG/24 HOURS TOPICAL PATCH TD SCH (10:15)
[2018-01-20] MEDS: amLODIPine BESYLATE 5 MG TABLET (FP) PO SCH (10:15)
[2018-01-20] MEDS: PRENATAL VITAMINS W/ FOLIC ACID TABLET (FP) PO SCH (10:15)
[2018-01-20] MEDS: SERTRALINE HCL 50 MG TABLET (FP) PO SCH (10:16)
[2018-01-20] MEDS: hydrOXYzine PAMOATE 50 MG CAPSULE (FP) PO PRN (10:18)
[2018-01-20] MEDS: IBUPROFEN 400 MG TABLET (FP) PO PRN (11:50)
[2018-01-20] MEDS: QUEtiapine FUMARATE 100 MG TABLET (FP) PO SCH (21:40)
[2018-01-20] MEDS: SUVOREXANT 10 MG TABLET PO PRN (21:40)
[2018-01-20] MEDS: THIAMINE HCL 100 MG TABLET (FP) PO SCH (21:40)
[2018-01-20] MEDS: diphenhydrAMINE HCL 50 MG CAPSULE PO PRN (21:40)
[2018-01-21] MEDS: CYCLOBENZAPRINE HCL 5 MG TABLET PO SCH ×3 (06:57→21:36)
[2018-01-21] MEDS ORDERED: METHADONE HCL 10 MG TABLET ONE (08:32)
[2018-01-21] MEDS ORDERED: METHADONE HCL 40 MG DISPERSABLE TABLET ONE (08:32)
[2018-01-21] MEDS: METHADONE 160 MG, METHADONE 20 MG PO SCH (08:33)
[2018-01-21] MEDS: PRENATAL VITAMINS W/ FOLIC ACID TABLET (FP) PO SCH (10:26)
[2018-01-21] MEDS: amLODIPine BESYLATE 5 MG TABLET (FP) PO SCH (10:26)
[2018-01-21] MEDS: NICOTINE 14 MG/24 HOURS TOPICAL PATCH TD SCH (10:26)
[2018-01-21] MEDS: SERTRALINE HCL 50 MG TABLET (FP) PO SCH (10:26)
[2018-01-21] MEDS: hydrOXYzine PAMOATE 50 MG CAPSULE (FP) PO PRN (10:28)
[2018-01-21] MEDS: IBUPROFEN 400 MG TABLET (FP) PO PRN (10:28)
[2018-01-21] MEDS: diphenhydrAMINE HCL 50 MG CAPSULE PO PRN (21:36)
[2018-01-21] MEDS: SUVOREXANT 10 MG TABLET PO PRN (21:36)
[2018-01-21] MEDS: THIAMINE HCL 100 MG TABLET (FP) PO SCH (21:36)
[2018-01-21] MEDS: QUEtiapine FUMARATE 100 MG TABLET (FP) PO SCH (21:36)
[2018-01-22] MEDS: CYCLOBENZAPRINE HCL 5 MG TABLET PO SCH ×3 (06:20→21:32)
[2018-01-22] MEDS ORDERED: METHADONE HCL 10 MG TABLET ONE (07:47)
[2018-01-22] MEDS ORDERED: METHADONE HCL 40 MG DISPERSABLE TABLET ONE (07:47)
[2018-01-22] MEDS: METHADONE 160 MG, METHADONE 20 MG PO SCH (07:48)
[2018-01-22] MEDS: amLODIPine BESYLATE 5 MG TABLET (FP) PO SCH (10:53)
[2018-01-22] MEDS: PRENATAL VITAMINS W/ FOLIC ACID TABLET (FP) PO SCH (10:53)
[2018-01-22] MEDS: NICOTINE 14 MG/24 HOURS TOPICAL PATCH TD SCH (10:53)
[2018-01-22] MEDS: SERTRALINE HCL 50 MG TABLET (FP) PO SCH (10:53)
[2018-01-22] MEDS: IBUPROFEN 400 MG TABLET (FP) PO PRN (10:57)
[2018-01-22] MEDS: hydrOXYzine PAMOATE 50 MG CAPSULE (FP) PO PRN (11:00)
[2018-01-22] MEDS: QUEtiapine FUMARATE 100 MG TABLET (FP) PO SCH (21:32)
[2018-01-22] MEDS: THIAMINE HCL 100 MG TABLET (FP) PO SCH (21:32)
[2018-01-22] MEDS: diphenhydrAMINE HCL 50 MG CAPSULE PO PRN (21:32)
[2018-01-22] MEDS: MELATONIN 5 MG TABLETS PO PRN (21:33)
[2018-01-23] MEDS ORDERED: METHADONE HCL 10 MG TABLET ONE (02:59)
[2018-01-23] MEDS ORDERED: METHADONE HCL 40 MG DISPERSABLE TABLET ONE (03:00)
[2018-01-23] MEDS: CYCLOBENZAPRINE HCL 5 MG TABLET PO SCH ×3 (07:41→21:42)
[2018-01-23] MEDS: METHADONE 160 MG, METHADONE 20 MG PO SCH (07:59)
[2018-01-23] MEDS: PRENATAL VITAMINS W/ FOLIC ACID TABLET (FP) PO SCH (10:42)
[2018-01-23] MEDS: amLODIPine BESYLATE 5 MG TABLET (FP) PO SCH (10:43)
[2018-01-23] MEDS: SERTRALINE HCL 50 MG TABLET (FP) PO SCH (10:43)
[2018-01-23] MEDS: NICOTINE 14 MG/24 HOURS TOPICAL PATCH TD SCH (10:44)
[2018-01-23] MEDS: hydrOXYzine PAMOATE 50 MG CAPSULE (FP) PO PRN (10:45)
--- NOTE | 2018-01-23 12:34 | PN ---
[facility] Progress Note Note: PT REPORTS TO THIS HR SPECIALIST SHE DOES NOT WANT THE NORVASC FOR BP AND HAS NEVER BEEN ON IT. SAYS SHE GOT IT IN DETOX AND DECLINES TO CONTINUE. HOWEVER, PT AGREES TO TAKE CLONIDINE NEEDED AND WILL FOLLOW UP WITH HER PRIMARY CARE PROVIDER FOR MONITORING AND POSSIBLE TREATMENT IF NEEDED. Vital Signs (72 hours) 01/21/18 01/21/18 01/21/18 00:30 03:30 07:50 Temperature Pulse Rate 53 L Respiratory 18 17 18 Rate Blood Pressure 107/73 01/21/18 01/22/18 01/22/18 10:00 00:30 03:30 Temperature Pulse Rate 60 Respiratory 18 18 Rate Blood Pressure 118/79 01/22/18 01/22/18 01/23/18 07:03 09:23 00:30 Temperature 97.7 F Pulse Rate 55 L 111 H Respiratory 16 17 18 Rate Blood Pressure 125/85 114/81 01/23/18 01/23/18 01/23/18 03:30 07:18 10:44 Temperature 97.6 F Pulse Rate 71 60 Respiratory 18 18 18 Rate Blood Pressure 115/79 138/84 Microbiology 01/18/18 07:30 Urine - Urine Clean Catch Urine Culture - Final NO GROWTH OBTAINED IMPRESSION:[facility] -NO UTI PLAN:CLONIDINE 0.1 PO BID PRN FOR ELEVATED BP INCREASE PO FLUIDS
[2018-01-23] MEDS: IBUPROFEN 400 MG TABLET (FP) PO PRN (14:33)
[2018-01-23] MEDS: THIAMINE HCL 100 MG TABLET (FP) PO SCH (21:42)
[2018-01-23] MEDS: QUEtiapine FUMARATE 100 MG TABLET (FP) PO SCH (21:42)
[2018-01-23] MEDS: cloNIDine HCL 0.1 MG TABLET PO SCH (21:43)
[2018-01-23] MEDS: diphenhydrAMINE HCL 50 MG CAPSULE PO PRN (21:44)
[2018-01-24] MEDS: CYCLOBENZAPRINE HCL 5 MG TABLET PO SCH ×3 (06:37→21:24)
[2018-01-24] MEDS ORDERED: METHADONE HCL 10 MG TABLET ONE (07:38)
[2018-01-24] MEDS ORDERED: METHADONE HCL 40 MG DISPERSABLE TABLET ONE (07:38)
[2018-01-24] MEDS: METHADONE 160 MG, METHADONE 20 MG PO SCH (07:47)
[2018-01-24] MEDS: NICOTINE 14 MG/24 HOURS TOPICAL PATCH TD SCH (10:13)
[2018-01-24] MEDS: SERTRALINE HCL 50 MG TABLET (FP) PO SCH (10:13)
[2018-01-24] MEDS: PRENATAL VITAMINS W/ FOLIC ACID TABLET (FP) PO SCH (10:13)
[2018-01-24] MEDS: cloNIDine HCL 0.1 MG TABLET PO SCH ×2 (10:13→21:23)
[2018-01-24] MEDS: THIAMINE HCL 100 MG TABLET (FP) PO SCH (21:22)
[2018-01-24] MEDS: QUEtiapine FUMARATE 100 MG TABLET (FP) PO SCH (21:23)
[2018-01-24] MEDS: diphenhydrAMINE HCL 50 MG CAPSULE PO PRN (21:23)
[2018-01-24] MEDS: MELATONIN 5 MG TABLETS PO PRN (21:24)
[2018-01-25] MEDS: CYCLOBENZAPRINE HCL 5 MG TABLET PO SCH ×3 (06:38→21:36)
[2018-01-25] MEDS ORDERED: METHADONE HCL 10 MG TABLET ONE (07:46)
[2018-01-25] MEDS ORDERED: METHADONE HCL 40 MG DISPERSABLE TABLET ONE (07:47)
[2018-01-25] MEDS: METHADONE 160 MG, METHADONE 20 MG PO SCH (07:51)
[2018-01-25] MEDS: NICOTINE 14 MG/24 HOURS TOPICAL PATCH TD SCH (10:07)
[2018-01-25] MEDS: PRENATAL VITAMINS W/ FOLIC ACID TABLET (FP) PO SCH (10:08)
[2018-01-25] MEDS: SERTRALINE HCL 50 MG TABLET (FP) PO SCH (10:08)
[2018-01-25] MEDS: cloNIDine HCL 0.1 MG TABLET PO SCH ×2 (10:08→21:36)
[2018-01-25] MEDS: hydrOXYzine PAMOATE 50 MG CAPSULE (FP) PO PRN (10:09)
[2018-01-25] MEDS: THIAMINE HCL 100 MG TABLET (FP) PO SCH (21:35)
[2018-01-25] MEDS: MELATONIN 5 MG TABLETS PO PRN (21:35)
[2018-01-25] MEDS: QUEtiapine FUMARATE 100 MG TABLET (FP) PO SCH (21:36)
[2018-01-25] MEDS: diphenhydrAMINE HCL 50 MG CAPSULE PO PRN (21:36)
[2018-01-26] MEDS: CYCLOBENZAPRINE HCL 5 MG TABLET PO SCH ×3 (07:11→21:40)
[2018-01-26] MEDS ORDERED: METHADONE HCL 10 MG TABLET ONE (08:09)
[2018-01-26] MEDS ORDERED: METHADONE HCL 40 MG DISPERSABLE TABLET ONE (08:10)
[2018-01-26] MEDS: METHADONE 160 MG, METHADONE 20 MG PO SCH (08:10)
[2018-01-26] MEDS: PRENATAL VITAMINS W/ FOLIC ACID TABLET (FP) PO SCH (10:27)
[2018-01-26] MEDS: SERTRALINE HCL 50 MG TABLET (FP) PO SCH (10:27)
[2018-01-26] MEDS: cloNIDine HCL 0.1 MG TABLET PO SCH ×2 (10:28→21:40)
[2018-01-26] MEDS: hydrOXYzine PAMOATE 50 MG CAPSULE (FP) PO PRN (10:28)
[2018-01-26] MEDS: NICOTINE 14 MG/24 HOURS TOPICAL PATCH TD SCH (10:28)
[2018-01-26] MEDS: QUEtiapine FUMARATE 100 MG TABLET (FP) PO SCH (21:40)
[2018-01-26] MEDS: diphenhydrAMINE HCL 50 MG CAPSULE PO PRN (21:40)
[2018-01-26] MEDS: MELATONIN 5 MG TABLETS PO PRN (21:40)
[2018-01-26] MEDS: THIAMINE HCL 100 MG TABLET (FP) PO SCH (21:40)
[2018-01-27] MEDS: hydrOXYzine PAMOATE 50 MG CAPSULE (FP) PO PRN ×2 (00:37→09:36)
[2018-01-27] MEDS: CYCLOBENZAPRINE HCL 5 MG TABLET PO SCH ×3 (06:46→21:02)
[2018-01-27] MEDS ORDERED: METHADONE HCL 40 MG DISPERSABLE TABLET ONE (07:46)
[2018-01-27] MEDS ORDERED: METHADONE HCL 10 MG TABLET ONE (07:46)
[2018-01-27] MEDS: METHADONE 160 MG, METHADONE 20 MG PO SCH (07:50)
[2018-01-27] MEDS: PRENATAL VITAMINS W/ FOLIC ACID TABLET (FP) PO SCH (09:34)
[2018-01-27] MEDS: cloNIDine HCL 0.1 MG TABLET PO SCH ×2 (09:34→23:07)
[2018-01-27] MEDS: NICOTINE 14 MG/24 HOURS TOPICAL PATCH TD SCH (09:34)
[2018-01-27] MEDS: SERTRALINE HCL 50 MG TABLET (FP) PO SCH (09:35)
[2018-01-27] MEDS: THIAMINE HCL 100 MG TABLET (FP) PO SCH (21:01)
[2018-01-27] MEDS: diphenhydrAMINE HCL 50 MG CAPSULE PO PRN (21:03)
[2018-01-27] MEDS: MELATONIN 5 MG TABLETS PO PRN (21:03)
[2018-01-27] MEDS: QUEtiapine FUMARATE 100 MG TABLET (FP) PO SCH (21:04)
[2018-01-28] MEDS ORDERED: METHADONE HCL 10 MG TABLET ONE (06:41)
[2018-01-28] MEDS ORDERED: METHADONE HCL 40 MG DISPERSABLE TABLET ONE (06:42)
[2018-01-28] MEDS: CYCLOBENZAPRINE HCL 5 MG TABLET PO SCH ×3 (06:44→21:08)
[2018-01-28] MEDS: METHADONE 160 MG, METHADONE 20 MG PO SCH (07:01)
[2018-01-28] MEDS: cloNIDine HCL 0.1 MG TABLET PO SCH ×2 (09:09→21:08)
[2018-01-28] MEDS: NICOTINE 14 MG/24 HOURS TOPICAL PATCH TD SCH (09:09)
[2018-01-28] MEDS: hydrOXYzine PAMOATE 50 MG CAPSULE (FP) PO PRN (09:10)
[2018-01-28] MEDS: SERTRALINE HCL 50 MG TABLET (FP) PO SCH (09:10)
[2018-01-28] MEDS: PRENATAL VITAMINS W/ FOLIC ACID TABLET (FP) PO SCH (09:10)
[2018-01-28] MEDS: ACETAMINOPHEN 325 MG TABLET (FP) PO PRN (09:11)
[2018-01-28] MEDS ORDERED: QUEtiapine FUMARATE 100 MG TABLET (FP) PO SCH (20:20)
[2018-01-28] MEDS: THIAMINE HCL 100 MG TABLET (FP) PO SCH (21:08)
[2018-01-29] MEDS ORDERED: ZOLPIDEM TARTRATE 5 MG TABLET PO ONE (00:14)
[2018-01-29] MEDS: hydrOXYzine PAMOATE 50 MG CAPSULE (FP) PO PRN (02:16)
[2018-01-29] MEDS: CYCLOBENZAPRINE HCL 5 MG TABLET PO SCH ×3 (06:24→21:24)
[2018-01-29] MEDS ORDERED: METHADONE HCL 10 MG TABLET ONE (07:30)
[2018-01-29] MEDS ORDERED: METHADONE HCL 40 MG DISPERSABLE TABLET ONE (07:31)
[2018-01-29] MEDS: METHADONE 160 MG, METHADONE 20 MG PO SCH (07:31)
[2018-01-29] MEDS: NICOTINE 14 MG/24 HOURS TOPICAL PATCH TD SCH (10:23)
[2018-01-29] MEDS: SERTRALINE HCL 50 MG TABLET (FP) PO SCH (10:23)
[2018-01-29] MEDS: PRENATAL VITAMINS W/ FOLIC ACID TABLET (FP) PO SCH (10:23)
[2018-01-29] MEDS: cloNIDine HCL 0.1 MG TABLET PO SCH ×2 (10:23→21:24)
[2018-01-29] MEDS ORDERED: diphenhydrAMINE HCL 50 MG CAPSULE PO PRN (16:06)
--- NOTE | 2018-01-29 16:51 | PN ---
Psychiatric Progress Note Vital Signs: Vital Signs Period Temp Pulse Resp BP Sys/Albright Pulse Ox Last 24 Hr 97.6 F 73-81 73 110-118/71-79 Date of Session: 01/29/18 Chief Complaint:: Sleep is still big problem,as well as concentration. HPI: Cocaine ,Benzo dependence comorbid with MDD,ADHD. Current Medications: Active Medications Generic Name Dose Route Start Last Admin Trade Name Freq PRN Reason Stop Dose Admin Acetaminophen 650 mg 01/15/18 21:24 01/28/18 09:11 Tylenol - PO 650 mg Q4H PRN Administration FEVER Al Hydroxide/Mg Hydroxide 30 ml 01/15/18 21:24 Mylanta Oral Suspension - PO Q6H PRN DYSPEPSIA Atomoxetine HCl 25 mg 01/30/18 10:00 Strattera - PO DAILY AKOSUA Clonidine 0.1 mg 01/23/18 22:00 01/29/18 10:23 Catapres - PO 0.1 mg BID AKOSUA Administration Cyclobenzaprine HCl 5 mg 01/18/18 14:00 01/29/18 13:54 Cyclobenzaprine Hcl PO 5 mg TID AKOSUA Administration Diphenhydramine HCl 50 mg 01/29/18 22:00 Benadryl - PO HS AKOSUA Eucalyptus/Menthol/Phenol/Sorbitol 1 each 01/15/18 21:24 Cepastat Lozenge - MM Q4H PRN SORE THROAT Guaifenesin 10 ml 01/15/18 21:24 Robitussin Dm - PO Q6H PRN COUGH Hydroxyzine Pamoate 50 mg 01/16/18 15:11 01/29/18 02:16 Vistaril - PO 50 mg Q4H PRN Administration ANXIETY Ibuprofen 400 mg 01/15/18 21:24 01/23/18 14:33 Motrin - PO 400 mg Q6H PRN Administration Pain level 4-6 Loperamide HCl 4 mg 01/15/18 21:24 Imodium - PO Q6H PRN DIARRHEA Magnesium Citrate 300 ml 01/15/18 21:24 Citroma - PO Q48H PRN CONSTIPATION Magnesium Hydroxide 30 ml 01/15/18 21:24 Milk Of Magnesia - PO DAILY PRN CONSTIPATION Melatonin 5 mg 01/15/18 22:00 01/27/18 21:03 Melatonin PO 5 mg HS PRN Administration INSOMNIA Methadone HCl 160 mg/ 180 mg 01/24/18 08:00 01/29/18 07:31 Methadone HCl 20 mg PO 180 mg DAILY@0800 AKOSUA Administration Nicotine 14 mg 01/16/18 10:00 01/29/18 10:23 Nicoderm Patch - TD 14 mg DAILY AKOSUA Administration Nicotine Polacrilex 2 mg 01/15/18 21:24 Nicorette Gum - BC Q2H PRN NICOTINE REPLACEMENT RX Multivit/Folic Acid/Iron 1 tab 01/16/18 10:00 01/29/18 10:23 Vitamins (Sjr) - PO 1 tab DAILY AKOSUA Administration Pseudoephedrine/Triprolidine 1 combo 01/15/18 21:24 Actifed - PO TID PRN NASAL CONGESTION Quetiapine Fumarate 400 mg 01/29/18 22:00 Seroquel - PO HS AKOSUA Sertraline HCl 100 mg 01/19/18 10:00 01/29/18 10:23 Zoloft - PO 100 mg DAILY AKOSUA Administration Thiamine HCl 100 mg 01/15/18 22:00 01/28/18 21:08 Vitamin B1 - PO 100 mg HS AKOSUA Administration Current Side Effect: No Lab tests ordered: No Lab tests reviewed: Yes Provider note:: Chart was revuwed,met with the patient who address her ongoing sleeping problems abd concentration problems. Properties of Seroquel has been discussed with the patient .Seroquel 200 mg po hs will be adjusted to 400 mg po hs,add Stratterra 25 mg po daily. Supportive therapy provided. Total face to face time:: 30 Mental Status Exam - Mental Status Exam Alert and Oriented to: Time, Place, Person Cognitive Function: Grossly Intact Patient Appearance: Well Groomed Mood: Euthymic Affect: Appropriate, Normal Range Patient Behavior: Cooperative Speech Pattern: Clear Voice Loudness: Normal Thought Process: Goal Oriented Thought Disorder: Not Present Hallucinations: Denies Suicidal Ideation: Denies Homicidal Ideation: Denies Insight/Judgement: Fair Sleep: Fair Appetite: Good Muscle strength/Tone: Normal Gait/Station: Normal
[2018-01-29] MEDS: THIAMINE HCL 100 MG TABLET (FP) PO SCH (21:24)
[2018-01-29] MEDS: diphenhydrAMINE HCL 50 MG CAPSULE PO SCH (21:26)
[2018-01-29] MEDS: QUEtiapine FUMARATE 400 MG TABLET PO SCH (21:26)
[2018-01-30] MEDS ORDERED: METHADONE HCL 40 MG DISPERSABLE TABLET ONE (08:04)
[2018-01-30] MEDS ORDERED: METHADONE HCL 10 MG TABLET ONE (08:04)
[2018-01-30] MEDS: METHADONE 160 MG, METHADONE 20 MG PO SCH (08:05)
[2018-01-30] MEDS: CYCLOBENZAPRINE HCL 5 MG TABLET PO SCH ×3 (08:11→21:50)
[2018-01-30] MEDS ORDERED: PT OWN MED DRAWER 7, Y5N ONE (09:10)
[2018-01-30] MEDS: cloNIDine HCL 0.1 MG TABLET PO SCH ×2 (10:11→21:50)
[2018-01-30] MEDS: NICOTINE 14 MG/24 HOURS TOPICAL PATCH TD SCH (10:11)
[2018-01-30] MEDS: ATOMOXETINE HCL 25 MG CAPSULE PO SCH (10:12)
[2018-01-30] MEDS: SERTRALINE HCL 50 MG TABLET (FP) PO SCH (10:12)
[2018-01-30] MEDS: PRENATAL VITAMINS W/ FOLIC ACID TABLET (FP) PO SCH (10:12)
[2018-01-30] MEDS: hydrOXYzine PAMOATE 50 MG CAPSULE (FP) PO PRN (14:09)
[2018-01-30] MEDS: ACETAMINOPHEN 325 MG TABLET (FP) PO PRN (16:26)
[2018-01-30] MEDS: THIAMINE HCL 100 MG TABLET (FP) PO SCH (21:50)
[2018-01-30] MEDS: QUEtiapine FUMARATE 400 MG TABLET PO SCH (21:50)
[2018-01-30] MEDS: diphenhydrAMINE HCL 50 MG CAPSULE PO SCH (21:50)
[2018-01-31] MEDS ORDERED: METHADONE HCL 10 MG TABLET PO SCH (06:00)
[2018-01-31] MEDS ORDERED: METHADONE HCL 40 MG DISPERSABLE TABLET ONE (06:12)
[2018-01-31] MEDS ORDERED: METHADONE HCL 10 MG TABLET ONE (06:12)
[2018-01-31] MEDS: METHADONE 160 MG, METHADONE 20 MG PO SCH (07:34)
[2018-01-31] MEDS: CYCLOBENZAPRINE HCL 5 MG TABLET PO SCH ×3 (07:36→21:44)
[2018-01-31] MEDS ORDERED: PT OWN MED DRAWER 7, Y5N ONE (09:14)
[2018-01-31] MEDS: PRENATAL VITAMINS W/ FOLIC ACID TABLET (FP) PO SCH (10:02)
[2018-01-31] MEDS: NICOTINE 14 MG/24 HOURS TOPICAL PATCH TD SCH (10:02)
[2018-01-31] MEDS: ATOMOXETINE HCL 25 MG CAPSULE PO SCH (10:02)
[2018-01-31] MEDS: cloNIDine HCL 0.1 MG TABLET PO SCH ×2 (10:02→21:44)
[2018-01-31] MEDS: SERTRALINE HCL 50 MG TABLET (FP) PO SCH (10:03)
[2018-01-31] MEDS: hydrOXYzine PAMOATE 50 MG CAPSULE (FP) PO PRN (10:05)
[2018-01-31] MEDS: THIAMINE HCL 100 MG TABLET (FP) PO SCH (21:44)
[2018-01-31] MEDS: QUEtiapine FUMARATE 400 MG TABLET PO SCH (21:44)
[2018-01-31] MEDS: diphenhydrAMINE HCL 50 MG CAPSULE PO SCH (21:44)
[2018-02-01] MEDS ORDERED: METHADONE HCL 10 MG TABLET ONE (03:04)
[2018-02-01] MEDS ORDERED: METHADONE HCL 40 MG DISPERSABLE TABLET ONE (03:05)
[2018-02-01] MEDS: CYCLOBENZAPRINE HCL 5 MG TABLET PO SCH ×3 (06:28→21:09)
[2018-02-01] MEDS: METHADONE 160 MG, METHADONE 20 MG PO SCH (06:29)
[2018-02-01] MEDS ORDERED: PT OWN MED DRAWER 7, Y5N ONE (08:49)
[2018-02-01] MEDS: PRENATAL VITAMINS W/ FOLIC ACID TABLET (FP) PO SCH (09:38)
[2018-02-01] MEDS: SERTRALINE HCL 50 MG TABLET (FP) PO SCH (09:38)
[2018-02-01] MEDS: NICOTINE 14 MG/24 HOURS TOPICAL PATCH TD SCH (09:38)
[2018-02-01] MEDS: cloNIDine HCL 0.1 MG TABLET PO SCH ×2 (09:38→21:09)
[2018-02-01] MEDS: ATOMOXETINE HCL 25 MG CAPSULE PO SCH (09:39)
[2018-02-01] MEDS: THIAMINE HCL 100 MG TABLET (FP) PO SCH (21:09)
[2018-02-01] MEDS: QUEtiapine FUMARATE 400 MG TABLET PO SCH (21:09)
[2018-02-01] MEDS: diphenhydrAMINE HCL 50 MG CAPSULE PO SCH (21:09)
[2018-02-02] MEDS ORDERED: METHADONE HCL 10 MG TABLET ONE (05:53)
[2018-02-02] MEDS ORDERED: METHADONE HCL 40 MG DISPERSABLE TABLET ONE (05:53)
[2018-02-02] MEDS: CYCLOBENZAPRINE HCL 5 MG TABLET PO SCH ×3 (06:10→21:24)
[2018-02-02] MEDS: METHADONE 160 MG, METHADONE 20 MG PO SCH (06:10)
[2018-02-02] MEDS ORDERED: HALOPERIDOL 5 MG TABLET (FP) PO PRN (10:04)
[2018-02-02] MEDS: ATOMOXETINE HCL 25 MG CAPSULE PO SCH (10:30)
[2018-02-02] MEDS: PRENATAL VITAMINS W/ FOLIC ACID TABLET (FP) PO SCH (10:30)
[2018-02-02] MEDS: NICOTINE 14 MG/24 HOURS TOPICAL PATCH TD SCH (10:30)
[2018-02-02] MEDS: SERTRALINE HCL 50 MG TABLET (FP) PO SCH (10:30)
[2018-02-02] MEDS: cloNIDine HCL 0.1 MG TABLET PO SCH ×2 (10:31→21:25)
[2018-02-02] MEDS: hydrOXYzine PAMOATE 50 MG CAPSULE (FP) PO PRN (10:32)
[2018-02-02] MEDS: DOXEPIN HCL 50 MG CAPSULE PO SCH (21:24)
[2018-02-02] MEDS: THIAMINE HCL 100 MG TABLET (FP) PO SCH (21:24)
[2018-02-02] MEDS: QUEtiapine FUMARATE 400 MG TABLET PO SCH (21:24)
[2018-02-02] MEDS: diphenhydrAMINE HCL 50 MG CAPSULE PO SCH (21:24)
[2018-02-03] MEDS ORDERED: METHADONE HCL 10 MG TABLET ONE (06:00)
[2018-02-03] MEDS ORDERED: METHADONE HCL 40 MG DISPERSABLE TABLET ONE (06:01)
[2018-02-03] MEDS: CYCLOBENZAPRINE HCL 5 MG TABLET PO SCH ×3 (06:31→21:26)
[2018-02-03] MEDS: METHADONE 160 MG, METHADONE 20 MG PO SCH (06:32)
[2018-02-03] MEDS: NICOTINE 14 MG/24 HOURS TOPICAL PATCH TD SCH (09:28)
[2018-02-03] MEDS: cloNIDine HCL 0.1 MG TABLET PO SCH ×2 (09:28→21:26)
[2018-02-03] MEDS: PRENATAL VITAMINS W/ FOLIC ACID TABLET (FP) PO SCH (09:28)
[2018-02-03] MEDS: hydrOXYzine PAMOATE 50 MG CAPSULE (FP) PO PRN (09:29)
[2018-02-03] MEDS: SERTRALINE HCL 50 MG TABLET (FP) PO SCH (09:29)
[2018-02-03] MEDS: ATOMOXETINE HCL 25 MG CAPSULE PO SCH (09:29)
[2018-02-03] MEDS: QUEtiapine FUMARATE 400 MG TABLET PO SCH (21:26)
[2018-02-03] MEDS: diphenhydrAMINE HCL 50 MG CAPSULE PO SCH (21:26)
[2018-02-03] MEDS: DOXEPIN HCL 50 MG CAPSULE PO SCH (21:26)
[2018-02-03] MEDS: THIAMINE HCL 100 MG TABLET (FP) PO SCH (21:26)
[2018-02-04] MEDS ORDERED: METHADONE HCL 40 MG DISPERSABLE TABLET ONE (06:37)
[2018-02-04] MEDS ORDERED: METHADONE HCL 10 MG TABLET ONE (06:37)
[2018-02-04] MEDS: CYCLOBENZAPRINE HCL 5 MG TABLET PO SCH ×3 (08:22→22:03)
[2018-02-04] MEDS: METHADONE 160 MG, METHADONE 20 MG PO SCH (08:22)
[2018-02-04] MEDS: PRENATAL VITAMINS W/ FOLIC ACID TABLET (FP) PO SCH (10:28)
[2018-02-04] MEDS: SERTRALINE HCL 50 MG TABLET (FP) PO SCH (10:28)
[2018-02-04] MEDS: cloNIDine HCL 0.1 MG TABLET PO SCH ×2 (10:28→22:03)
[2018-02-04] MEDS: ATOMOXETINE HCL 25 MG CAPSULE PO SCH (10:28)
[2018-02-04] MEDS: NICOTINE 14 MG/24 HOURS TOPICAL PATCH TD SCH (10:28)
[2018-02-04] MEDS: hydrOXYzine PAMOATE 50 MG CAPSULE (FP) PO PRN (10:30)
[2018-02-04] MEDS: DOXEPIN HCL 50 MG CAPSULE PO SCH (22:03)
[2018-02-04] MEDS: THIAMINE HCL 100 MG TABLET (FP) PO SCH (22:03)
[2018-02-04] MEDS: QUEtiapine FUMARATE 400 MG TABLET PO SCH (22:03)
[2018-02-04] MEDS: diphenhydrAMINE HCL 50 MG CAPSULE PO SCH (22:03)
[2018-02-05] MEDS ORDERED: METHADONE HCL 40 MG DISPERSABLE TABLET ONE (06:07)
[2018-02-05] MEDS ORDERED: METHADONE HCL 10 MG TABLET ONE (06:08)
[2018-02-05] MEDS: CYCLOBENZAPRINE HCL 5 MG TABLET PO SCH (06:43)
[2018-02-05 07:28] VITALS: TEMP 97.1
[2018-02-05] MEDS: METHADONE 160 MG, METHADONE 20 MG PO SCH (08:01)
[2018-02-05] MEDS: SERTRALINE HCL 50 MG TABLET (FP) PO SCH (09:10)
[2018-02-05] MEDS: ATOMOXETINE HCL 25 MG CAPSULE PO SCH (09:10)
[2018-02-05] MEDS: NICOTINE 14 MG/24 HOURS TOPICAL PATCH TD SCH (09:10)
[2018-02-05] MEDS: cloNIDine HCL 0.1 MG TABLET PO SCH (09:10)
[2018-02-05] MEDS: PRENATAL VITAMINS W/ FOLIC ACID TABLET (FP) PO SCH (09:10)
[2018-02-05 09:17] VITALS: BP 119/77; PULSE 96
--- NOTE | 2018-02-05 09:30 | PN ---
Psychiatric Progress Note Vital Signs: Vital Signs Period Temp Pulse Resp BP Sys/Albright Pulse Ox Last 24 Hr 97.1 F 69-96 16-18 119-126/77-83 Date of Session: 02/05/18 Chief Complaint:: Discharge visit HPI: Patient addressed Cocaine,Benzo depenence comorbid with MDD,Substance induced sleep disorder.ADHD. Current Medications: Active Medications Generic Name Dose Route Start Last Admin Trade Name Freq PRN Reason Stop Dose Admin Acetaminophen 650 mg 01/15/18 21:24 01/30/18 16:26 Tylenol - PO 650 mg Q4H PRN Administration FEVER Al Hydroxide/Mg Hydroxide 30 ml 01/15/18 21:24 Mylanta Oral Suspension - PO Q6H PRN DYSPEPSIA Atomoxetine HCl 25 mg 01/30/18 10:00 02/05/18 09:10 Strattera - PO 25 mg DAILY AKOSUA Administration Clonidine 0.1 mg 01/23/18 22:00 02/05/18 09:10 Catapres - PO 0.1 mg BID AKOSUA Administration Cyclobenzaprine HCl 5 mg 01/18/18 14:00 02/05/18 06:43 Cyclobenzaprine Hcl PO 5 mg TID AKOSUA Administration Diphenhydramine HCl 50 mg 01/29/18 22:00 02/04/18 22:03 Benadryl - PO 50 mg HS AKOSUA Administration Doxepin HCl 50 mg 02/02/18 22:00 02/04/18 22:03 Sinequan - PO 50 mg HS AKOSUA Administration Eucalyptus/Menthol/Phenol/Sorbitol 1 each 01/15/18 21:24 Cepastat Lozenge - MM Q4H PRN SORE THROAT Guaifenesin 10 ml 01/15/18 21:24 Robitussin Dm - PO Q6H PRN COUGH Haloperidol 5 mg 02/02/18 10:04 Haldol - PO TID PRN AGITATION Hydroxyzine Pamoate 50 mg 01/16/18 15:11 02/04/18 10:30 Vistaril - PO 50 mg Q4H PRN Administration ANXIETY Ibuprofen 400 mg 01/15/18 21:24 01/23/18 14:33 Motrin - PO 400 mg Q6H PRN Administration Pain level 4-6 Loperamide HCl 4 mg 01/15/18 21:24 Imodium - PO Q6H PRN DIARRHEA Magnesium Citrate 300 ml 01/15/18 21:24 Citroma - PO Q48H PRN CONSTIPATION Magnesium Hydroxide 30 ml 01/15/18 21:24 Milk Of Magnesia - PO DAILY PRN CONSTIPATION Melatonin 5 mg 01/15/18 22:00 01/27/18 21:03 Melatonin PO 5 mg HS PRN Administration INSOMNIA Methadone HCl 160 mg/ 180 mg 01/31/18 06:00 02/05/18 08:01 Methadone HCl 20 mg PO 02/06/18 05:59 180 mg DAILY@0600 AKOSUA Administration Nicotine 14 mg 01/16/18 10:00 02/05/18 09:10 Nicoderm Patch - TD Not Given DAILY AKOSUA Nicotine Polacrilex 2 mg 01/15/18 21:24 Nicorette Gum - BC Q2H PRN NICOTINE REPLACEMENT RX Multivit/Folic Acid/Iron 1 tab 01/16/18 10:00 02/05/18 09:10 Vitamins (Sjr) - PO 1 tab DAILY AKOSUA Administration Pseudoephedrine/Triprolidine 1 combo 01/15/18 21:24 Actifed - PO TID PRN NASAL CONGESTION Quetiapine Fumarate 400 mg 01/29/18 22:00 02/04/18 22:03 Seroquel - PO 400 mg HS AKOSUA Administration Sertraline HCl 100 mg 01/19/18 10:00 02/05/18 09:10 Zoloft - PO 100 mg DAILY AKOSUA Administration Thiamine HCl 100 mg 01/15/18 22:00 02/04/18 22:03 Vitamin B1 - PO 100 mg HS AKOSUA Administration Current Side Effect: No Lab tests ordered: No Lab tests reviewed: Yes Provider note:: Patient completed this program today and will continue to address her issues on outpatient basis .She will continue current medicatiosna as per plan.Scripts for 30 days provixed. Supportive therapy provided focusing on relpse prevention.Patient is tsable for discharge today. Total face to face time:: 30 Mental Status Exam - Mental Status Exam Alert and Oriented to: Time, Place, Person Cognitive Function: Grossly Intact Patient Appearance: Well Groomed Mood: Euthymic Affect: Appropriate, Mood Congruent Patient Behavior: Cooperative Speech Pattern: Clear Voice Loudness: Normal Thought Process: Goal Oriented Thought Disorder: Not Present Hallucinations: Denies Suicidal Ideation: Denies Homicidal Ideation: Denies Insight/Judgement: Fair Sleep: Fair Appetite: Fair Muscle strength/Tone: Normal Gait/Station: Normal Psychiatric Treatment Plan - Problem List (1) Sedative hypnotic or anxiolytic dependence Current Visit: Yes (2) Substance-induced sleep disorder Current Visit: Yes (3) ADHD (attention deficit hyperactivity disorder) Current Visit: Yes (4) Cocaine dependence Current Visit: Yes Qualifiers: Substance use status: uncomplicated Qualified Code(s): F14.20 - Cocaine dependence, uncomplicated (5) Depression Current Visit: Yes Qualifiers: Depression Type: unspecified Qualified Code(s): F32.9 - Major depressive disorder, single episode, unspecified (6) Hypertension Current Visit: Yes Qualifiers: Hypertension type: essential hypertension Qualified Code(s): I10 - Essential (primary) hypertension
== END 2018-02-05 09:34 | disposition home or self-care (01) | DRG 772 ==
LOC: YASAS 14:55 → Y3E 20:38
PROVIDERS: ADMIT Psychiatry & Neurology Psychiatry; ATTEND Psychiatry & Neurology Psychiatry
PROC: HZ42ZZZ Group Counseling for Substance Abuse Treatment, Cognitive-Behavioral (ICD-10-PCS; principal; 2018-01-15)
DX: F13.20 Sedative, hypnotic or anxiolytic dependence, uncomplicated (principal); F14.20 Cocaine dependence, uncomplicated; F11.20 Opioid dependence, uncomplicated; F19.24 Other psychoactive substance dependence with psychoactive substance-induced mood disorder; F19.282 Other psychoactive substance dependence with psychoactive substance-induced sleep disorder; F33.1 Major depressive disorder, recurrent, moderate; F32.9 Major depressive disorder, single episode, unspecified; F41.9 Anxiety disorder, unspecified; F90.9 Attention-deficit hyperactivity disorder, unspecified type; I10 Essential (primary) hypertension; M54.30 Sciatica, unspecified side; Z88.0 Allergy status to penicillin; Z91.013 Allergy to seafood; Z91.5 Personal history of self-harm
CPT/HCPCS: 81003; 81015; 87086; 93005; 93010; J0735

== ENCOUNTER 2023-10-16 11:27 | Inpatient (IN) | payer BC ==
[2023-10-16 12:02] VITALS: BMI 18.4
[2023-10-16] MEDS ORDERED: BENZONATATE 200 MG CAPSULE PO PRN (12:37)
[2023-10-16] MEDS ORDERED: BISMUTH SUBSALICYLATE 262 MG/15 ML BTL PO PRN (12:37)
[2023-10-16] MEDS ORDERED: BENZOCAINE/MENTHOL (CHLORASEPTIC ) LOZENGE MM PRN (12:37)
[2023-10-16] MEDS ORDERED: MAGNESIUM HYDROX 2400MG/30ML ORAL SUSPENSION 30 ML CUP PO PRN (12:37)
[2023-10-16] MEDS ORDERED: ACETAMINOPHEN 325 MG TABLET (FP) PO PRN (12:37)
[2023-10-16] MEDS ORDERED: NALOXONE (NARCAN) HCL 4 MG/0.1 ML SPRAY NS PRN (12:37)
[2023-10-16] MEDS ORDERED: MAG HYDROX/AL HYDROX/SIMETH 30 ML UNIT-DOSE CUP PO PRN (12:37)
[2023-10-16] MEDS ORDERED: LOPERAMIDE HCL 2 MG CAPSULE PO PRN (12:37)
[2023-10-16] MEDS ORDERED: DICYCLOMINE HCL 10 MG CAPSULE PO PRN (12:37)
[2023-10-16] MEDS ORDERED: NALOXONE HCL 0.4 MG/ML VIAL IM PRN (12:37)
[2023-10-16] MEDS ORDERED: guaiFENesin 600 MG TABLET.ER (FP) PO PRN (12:37)
[2023-10-16] MEDS ORDERED: IBUPROFEN 400 MG TABLET (FP) PO PRN (12:37)
[2023-10-16] MEDS ORDERED: ONDANSETRON *ODT* 4 MG TABLET SL PRN (12:37)
[2023-10-16] MEDS ORDERED: hydrOXYzine PAMOATE 25 MG CAPSULE (FP) PO PRN (12:37)
[2023-10-16] MEDS: TOLNAFTATE 1% CREAM 15 GM TUBE TP SCH (13:00)
[2023-10-16] MEDS ORDERED: chlordiazePOXIDE HCL 25 MG CAPSULE ONE (13:39)
[2023-10-16] MEDS ORDERED: PRENATAL VITAMINS W/ FOLIC ACID TABLET (FP) PO ONE (13:39)
[2023-10-16] MEDS ORDERED: NICOTINE 21 MG/24 HOURS TOPICAL PATCH ONE (13:39)
[2023-10-16] MEDS: NICOTINE 21 MG/24 HOURS TOPICAL PATCH TD SCH (13:45)
[2023-10-16] MEDS: PRENATAL VITAMINS W/ FOLIC ACID TABLET (FP) PO SCH (13:46)
[2023-10-16] MEDS: chlordiazePOXIDE HCL 25 MG CAPSULE PO ONE (13:46)
[2023-10-16] MEDS: ACAMPROSATE CALCIUM 333 MG TABLET.DR PO SCH (14:52)
[2023-10-16] MEDS: chlordiazePOXIDE HCL 25 MG CAPSULE PO SCH (17:38)
[2023-10-16] MEDS: METHOCARBAMOL 500 MG TABLET PO PRN (17:39)
[2023-10-16] MEDS: THIAMINE 100 MG TABLET PO SCH (22:26)
[2023-10-16] MEDS: MELATONIN 5 MG TABLETS PO SCH (22:26)
[2023-10-17] MEDS: chlordiazePOXIDE HCL 25 MG CAPSULE PO PRN (03:38)
[2023-10-17] MEDS ORDERED: methaDONE HCL 40 MG DISPERSABLE TABLET PO SCH (06:00)
[2023-10-17] MEDS: diazePAM 5 MG TABLET PO SCH (10:01)
[2023-10-17] MEDS ORDERED: cloNIDine HCL 0.1 MG TABLET PO PRN (10:57)
[2023-10-17 11:49] LABS: POTASSIUM 4.1 mmol/L (3.5-5.1)
[2023-10-17 11:51] LABS: ALBUMIN 3.8 g/dl (3.4-5.0); BLOOD UREA NITROGEN 15.6 mg/dL (7-18)
[2023-10-17 11:54] LABS: CREATININE 1.1 mg/dL (0.55-1.3)
[2023-10-17 11:56] LABS: BILIRUBIN,TOTAL 0.3 mg/dL (0.2-1); TOT PROT 7.1 g/dl (6.4-8.2)
[2023-10-17 12:12] LABS: HEMATOCRIT 41.1 % (32.4-45.2); HEMOGLOBIN 13.9 GM/dL (10.7-15.3); MCH 27.3 pg (25.7-33.7); MCHC 33.8 g/dl (32.0-36.0); MEAN CELL VOLUME 80.8 fl (80-96); MEAN PLT VOLUME 9.6 fl (7.5-11.1); PLATELET COUNT 246 10^3/uL (134-434); RDW 17.2 % (11.6-15.6); WHITE BLOOD COUNT 4.8 K/mm3 (4.0-10.0)
[2023-10-17] MEDS: diazePAM 5 MG TABLET PO PRN (13:32)
[2023-10-17] MEDS: POLYETHYLENE GLYCOL (HEALTHYLAX) 3350 17 GM PACKET PO PRN (17:40)
[2023-10-17] MEDS: QUEtiapine FUMARATE 200 MG TABLET PO SCH (21:07)
[2023-10-17] MEDS ORDERED: QUEtiapine FUMARATE 100 MG TABLET (FP) PO SCH (22:00)
[2023-10-17] MEDS ORDERED: QUEtiapine FUMARATE 400 MG TABLET PO SCH (22:00)
[2023-10-18] MEDS ORDERED: chlordiazePOXIDE HCL 25 MG CAPSULE PO SCH (05:00)
[2023-10-18] MEDS: LACTULOSE 20 GM/30 ML UDC (FOR ORAL USE ONLY) PO SCH (17:25)
[2023-10-19] MEDS ORDERED: chlordiazePOXIDE HCL 10 MG CAPSULE PO PRN
[2023-10-19] MEDS ORDERED: chlordiazePOXIDE HCL 10 MG CAPSULE PO SCH (05:00)
[2023-10-19] MEDS: diazePAM 5 MG TABLET PO SCH (06:06)
[2023-10-19] MEDS: IBUPROFEN 600 MG TABLET (FP) PO PRN (17:13)
[2023-10-20] MEDS ORDERED: chlordiazePOXIDE HCL 10 MG CAPSULE PO SCH (05:00)
[2023-10-20] MEDS: diazePAM 5 MG TABLET PO SCH (06:01)
[2023-10-20] MEDS: diazePAM 5 MG TABLET PO ONE (11:34)
[2023-10-21] MEDS ORDERED: chlordiazePOXIDE HCL 10 MG CAPSULE PO ONE (05:00)
[2023-10-21] MEDS: diazePAM 5 MG TABLET PO ONE (06:04)
[2023-10-21 06:26] VITALS: BP 108/61; PULSE 79; RESP 16; TEMP 97.8
== END 2023-10-21 09:21 | disposition home or self-care (01) | DRG 773 ==
LOC: YASAS 11:27 → Y6N 13:37
PROVIDERS: ADMIT Allergy & Immunology; ATTEND Surgery
PROC: HZ2ZZZZ Detoxification Services for Substance Abuse Treatment (ICD-10-PCS; principal; 2023-10-16)
DX: F10.230 Alcohol dependence with withdrawal, uncomplicated (principal); F13.230 Sedative, hypnotic or anxiolytic dependence with withdrawal, uncomplicated; F11.20 Opioid dependence, uncomplicated; F17.210 Nicotine dependence, cigarettes, uncomplicated; F25.9 Schizoaffective disorder, unspecified; F19.282 Other psychoactive substance dependence with psychoactive substance-induced sleep disorder; F19.280 Other psychoactive substance dependence with psychoactive substance-induced anxiety disorder; F19.24 Other psychoactive substance dependence with psychoactive substance-induced mood disorder; F90.9 Attention-deficit hyperactivity disorder, unspecified type; I10 Essential (primary) hypertension; Z62.810 Personal history of physical and sexual abuse in childhood; Z88.0 Allergy status to penicillin
CPT/HCPCS: 36415; 80053; 80305; 80307; 82140; 85027; 86780; 93005; 93010

== ENCOUNTER 2023-11-03 15:25 | Inpatient (IN) | payer BC ==
[2023-11-03 15:58] VITALS: BMI 22.3
[2023-11-03] MEDS ORDERED: guaiFENesin 600 MG TABLET.ER (FP) PO PRN (18:24)
[2023-11-03] MEDS ORDERED: LOPERAMIDE HCL 2 MG CAPSULE PO PRN (18:24)
[2023-11-03] MEDS ORDERED: NALOXONE HCL 0.4 MG/ML VIAL IM PRN (18:24)
[2023-11-03] MEDS ORDERED: NALOXONE (NARCAN) HCL 4 MG/0.1 ML SPRAY NS PRN (18:24)
[2023-11-03] MEDS ORDERED: BENZOCAINE/MENTHOL (CHLORASEPTIC ) LOZENGE MM PRN (18:24)
[2023-11-03] MEDS ORDERED: BENZONATATE 200 MG CAPSULE PO PRN (18:24)
[2023-11-03] MEDS ORDERED: IBUPROFEN 400 MG TABLET (FP) PO PRN (18:24)
[2023-11-03] MEDS: hydrOXYzine PAMOATE 25 MG CAPSULE (FP) PO PRN (21:41)
[2023-11-03] MEDS: THIAMINE 100 MG TABLET PO SCH (21:42)
[2023-11-03] MEDS: MELATONIN 5 MG TABLETS PO SCH (21:42)
[2023-11-03] MEDS: traZODone HCL 50 MG TABLET (FP) PO ONE (22:17)
[2023-11-04] MEDS: IBUPROFEN 600 MG TABLET (FP) PO PRN (01:57)
[2023-11-04] MEDS: PRENATAL VITAMINS W/ FOLIC ACID TABLET (FP) PO SCH (09:05)
[2023-11-04] MEDS: amLODIPine BESYLATE 5 MG TABLET (FP) PO SCH (11:13)
[2023-11-04] MEDS: methaDONE HCL 10 MG TABLET PO SCH (11:14)
[2023-11-04] MEDS: GABAPENTIN 300 MG CAPSULE PO SCH (13:05)
[2023-11-04] MEDS: QUEtiapine FUMARATE 200 MG TABLET PO SCH (21:00)
[2023-11-05] MEDS: ACETAMINOPHEN 325 MG TABLET (FP) PO PRN (06:40)
[2023-11-05 12:34] LABS: EPI CELLS 31 /uL (0-25.1); HYALINE CASTS 1 /uL (0-3.1); PH,URINE 5.5 (5.0-8.0); URINE APPEARANCE CLEAR; URINE BACTERIA 632 /uL (0-1359); URINE BILIRUBIN NEGATIVE (NEGATIVE); URINE COLOR YELLOW; URINE GLUCOSE (UA) NEGATIVE (NEGATIVE); URINE KETONE NEGATIVE (NEGATIVE); URINE LEUK ESTERASE 1+ (NEGATIVE); URINE NITRITE NEGATIVE (NEGATIVE); URINE PROTEIN NEGATIVE (NEGATIVE); URINE RBC 3 /uL (0-23.9); URINE UROBILINOGEN 0.2 mg/dL (0.2-1.0); URINE WBC 47 /uL (0-25.8)
[2023-11-08] MEDS: BACLOFEN 10 MG TABLET (FP) PO SCH (17:12)
[2023-11-08] MEDS: methaDONE HCL 10 MG TABLET PO ONE (17:12)
[2023-11-08] MEDS: QUEtiapine FUMARATE 300 MG TABLET PO SCH (21:36)
[2023-11-08] MEDS: SULFAMETHOXAZOLE/TRIMETHOPRIM 800MG/160MG D.S. TABLET PO SCH (21:36)
[2023-11-09] MEDS ORDERED: methaDONE HCL 40 MG DISPERSABLE TABLET PO SCH (06:00)
[2023-11-09 06:56] VITALS: RESP 18
[2023-11-10] MEDS ORDERED: NICOTINE POLACRILEX 4 MG GUM BUC PRN (10:12)
[2023-11-10] MEDS: NICOTINE 21 MG/24 HOURS TOPICAL PATCH TD SCH (10:18)
[2023-11-10] MEDS: MAG HYDROX/AL HYDROX/SIMETH 30 ML UNIT-DOSE CUP PO PRN (10:18)
[2023-11-11] MEDS: MAGNESIUM HYDROX 2400MG/30ML ORAL SUSPENSION 30 ML CUP PO PRN (21:45)
[2023-11-13] MEDS: CHOLECALCIFEROL (VIT D3) 400 UNIT (10 MCG) TABLET PO SCH (16:47)
[2023-11-13] MEDS: POLYETHYLENE GLYCOL (HEALTHYLAX) 3350 17 GM PACKET PO PRN (21:08)
[2023-11-14 07:21] VITALS: BP 121/70; PULSE 67; TEMP 97.8
[2023-11-14 12:32] LABS: HIV INTERPRETATION NEGATIVE (NEGATIVE)
== END 2023-11-14 11:02 | disposition home or self-care (01) | DRG 772 ==
LOC: YASAS 15:25 → Y3NR 19:01 → Y5N 11-04 11:40
PROVIDERS: ADMIT Allergy & Immunology; ATTEND Psychiatry & Neurology Pain Medicine
PROC: HZ42ZZZ Group Counseling for Substance Abuse Treatment, Cognitive-Behavioral (ICD-10-PCS; principal; 2023-11-03)
DX: F11.20 Opioid dependence, uncomplicated (principal); F10.20 Alcohol dependence, uncomplicated; F19.982 Other psychoactive substance use, unspecified with psychoactive substance-induced sleep disorder; F19.980 Other psychoactive substance use, unspecified with psychoactive substance-induced anxiety disorder; F19.94 Other psychoactive substance use, unspecified with psychoactive substance-induced mood disorder; F43.10 Post-traumatic stress disorder, unspecified; F32.A Depression, unspecified; I10 Essential (primary) hypertension; M54.59 Other low back pain; G89.29 Other chronic pain; B18.2 Chronic viral hepatitis C; N39.0 Urinary tract infection, site not specified; Z88.0 Allergy status to penicillin; Z88.8 Allergy status to other drugs, medicaments and biological substances; Z91.013 Allergy to seafood; Z62.810 Personal history of physical and sexual abuse in childhood; Z56.0 Unemployment, unspecified
CPT/HCPCS: 36415; 80305; 80307; 81003; 82140; 82652; 83735; 86803; 87086; 87389; 87522; 87811; 93005; 93010; J0475

== ENCOUNTER 2024-10-20 18:17 | Inpatient (IN) | payer BC ==
[2024-10-20 18:31] VITALS: BMI 25.7
[2024-10-20] MEDS ORDERED: NICOTINE POLACRILEX 2 MG GUM BUC PRN (19:11)
[2024-10-20] MEDS ORDERED: NALOXONE (NARCAN) HCL 4 MG/0.1 ML SPRAY NS PRN (19:11)
[2024-10-20] MEDS ORDERED: NICOTINE POLACRILEX 2 MG LOZENGE BC PRN (19:11)
[2024-10-20] MEDS ORDERED: MAG HYDROX/AL HYDROX/SIMETH 30 ML UNIT-DOSE CUP PO PRN (19:11)
[2024-10-20] MEDS ORDERED: BENZONATATE 200 MG CAPSULE PO PRN (19:11)
[2024-10-20] MEDS ORDERED: IBUPROFEN 600 MG TABLET (FP) PO PRN (19:11)
[2024-10-20] MEDS ORDERED: LOPERAMIDE HCL 2 MG CAPSULE PO PRN (19:11)
[2024-10-20] MEDS ORDERED: P-EPHED 60MG/TRIPROLIDI 2.5MG TABLET PO PRN (19:11)
[2024-10-20] MEDS ORDERED: DICYCLOMINE HCL 10 MG CAPSULE PO PRN (19:11)
[2024-10-20] MEDS ORDERED: MAGNESIUM HYDROX 2400MG/30ML ORAL SUSPENSION 30 ML CUP PO PRN (19:11)
[2024-10-20] MEDS ORDERED: BISMUTH SUBSALICYLATE 524 MG/30 ML PO PRN (19:11)
[2024-10-20] MEDS ORDERED: guaiFENesin 600 MG TABLET.ER (FP) PO PRN (19:11)
[2024-10-20] MEDS ORDERED: BENZOCAINE/MENTHOL (CHLORASEPTIC ) LOZENGE MM PRN (19:11)
[2024-10-20] MEDS ORDERED: ONDANSETRON *ODT* 4 MG TABLET SL PRN (19:11)
[2024-10-20] MEDS ORDERED: IBUPROFEN 400 MG TABLET (FP) PO PRN (19:11)
[2024-10-20] MEDS ORDERED: POLYETHYLENE GLYCOL (HEALTHYLAX) 3350 17 GM PACKET PO PRN (19:11)
[2024-10-20] MEDS ORDERED: METOPROLOL TARTRATE 25 MG TABLET (FP) ONE (20:21)
[2024-10-20] MEDS: METOPROLOL TARTRATE 25 MG TABLET (FP) PO ONE (20:32)
[2024-10-20] MEDS: THIAMINE 100 MG TABLET PO SCH (22:13)
[2024-10-20] MEDS: MELATONIN 5 MG TABLETS PO SCH (22:13)
[2024-10-20] MEDS: METHOCARBAMOL 500 MG TABLET PO PRN (22:14)
[2024-10-21] MEDS: PRENATAL VITAMINS W/ FOLIC ACID TABLET (FP) PO SCH (09:15)
[2024-10-21 11:21] LABS: MCHC 33.7 g/dl (32.2-35.5); MEAN CELL VOLUME 79.8 fl (79.4-94.8); MEAN PLT VOLUME 12.3 fl (9.4-12.3); RDW 14.3 % (12.3-16.6)
[2024-10-21 11:45] LABS: CO2 29 mmol/L (21-32)
[2024-10-21 11:46] LABS: GLUCOSE,RANDOM 136 mg/dL (74-106)
[2024-10-21 11:48] LABS: SGPT/ALT 64 U/L (13-61)
[2024-10-21 11:49] LABS: CREATININE 0.8 mg/dL (0.55-1.3); SGOT/AST 81 U/L (15-37)
[2024-10-21 11:50] LABS: TOT PROT 7.5 g/dl (6.4-8.2)
[2024-10-21 11:53] LABS: ALK PHOS 118 U/L (45-117)
[2024-10-21] MEDS: GABAPENTIN 300 MG CAPSULE PO SCH (13:08)
[2024-10-21 20:58] VITALS: RESP 18
[2024-10-21] MEDS: SULFAMETHOXAZOLE/TRIMETHOPRIM 800MG/160MG D.S. TABLET PO SCH (21:25)
[2024-10-21] MEDS: BACLOFEN 10 MG TABLET (FP) PO SCH (21:25)
[2024-10-21] MEDS: QUEtiapine FUMARATE 400 MG TABLET PO SCH (21:25)
[2024-10-21] MEDS: ACETAMINOPHEN 325 MG TABLET (FP) PO PRN (21:26)
[2024-10-22 09:05] VITALS: BP 116/80; PULSE 82; TEMP 98.2
== END 2024-10-22 12:34 | disposition home or self-care (01) | DRG 773 ==
LOC: YASAS 18:17 → Y6N 19:42
PROVIDERS: ADMIT Neuromusculoskeletal Medicine & OMM; ATTEND Allergy & Immunology
PROC: HZ2ZZZZ Detoxification Services for Substance Abuse Treatment (ICD-10-PCS; principal; 2024-10-20)
DX: F14.20 Cocaine dependence, uncomplicated (principal); F11.20 Opioid dependence, uncomplicated; F17.210 Nicotine dependence, cigarettes, uncomplicated; F19.282 Other psychoactive substance dependence with psychoactive substance-induced sleep disorder; F19.280 Other psychoactive substance dependence with psychoactive substance-induced anxiety disorder; F19.24 Other psychoactive substance dependence with psychoactive substance-induced mood disorder; F43.10 Post-traumatic stress disorder, unspecified; I10 Essential (primary) hypertension; M54.50 Low back pain, unspecified; G89.29 Other chronic pain; Z62.810 Personal history of physical and sexual abuse in childhood
CPT/HCPCS: 36415; 80053; 80305; 80307; 85027; 86780; 93005; 93010; J0475